=== PATIENT | male | born 1945 | race Caucasian/White ===

== ENCOUNTER 2017-09-08 15:56 | Emergency (ER) | payer MEDICARE, BC ==
[2017-09-08 16:48] LABS: BASOPHILS 0.7 % (0-2); EOSINOPHILS 2.1 % (0-7); HEMOGLOBIN 13.2 g/dL (13.5-17.5); IMMATURE GRANULOCYTES 0.1 % (0-5); LYMPHOCYTES 28.6 % (15-50); MCH 32.3 pg (26.0-34.0); MCHC 33.8 g/dL (31.0-37.0); MCV 95.4 fL (80.0-100.0); MEAN PLATELET VOLUME 10.7 fL (7.4-10.4); MONOCYTES 8.4 % (2-11); NEUTROPHILS 60.1 % (40-80); PLATELET COUNT 224 10x3/uL (130-400); RBC 4.09 10x6/uL (4.20-6.10); RDW 13.4 % (11.5-14.5); WBC 7.2 10x3/uL (4.8-10.8)
[2017-09-08 16:57] LABS: INR 1.1 (0.85-1.17); PROTIME 13.8 SECONDS (11.6-15.0)
[2017-09-08 17:03] LABS: ALBUMIN 3.5 g/dL (3.4-5.0); ANION GAP 14.8 mmol/L (8-16); BILIRUBIN - TOTAL 0.47 mg/dL (0.2-1.3); CALCIUM 8.9 mg/dL (8.5-10.1); CARBON DIOXIDE 26.3 mmol/L (21.0-32.0); CREATININE - SERUM 1.2 mg/dL (0.6-1.3); POTASSIUM - SERUM 4.1 mmol/L (3.5-5.1); PROTEIN - SERUM 7.1 g/dL (6.4-8.2)
[2017-09-08 17:30] LABS: CREATINE KINASE 110 UL (21-232); TROPONIN-I < 0.017 ng/mL (0.000-0.060)
== END 2017-09-08 18:15 | disposition home or self-care (01) ==
LOC: D.ER 15:56
PROVIDERS: Family Medicine
DX: G45.9 Transient cerebral ischemic attack, unspecified (principal); E11.9 Type 2 diabetes mellitus without complications; I10 Essential (primary) hypertension

== ENCOUNTER 2017-10-28 13:26 | Emergency (ER) | payer MEDICARE, BC ==
[~2017-10-28] VITALS: Ht 180.3 cm; Wt 72.7 kg
[2017-10-28 13:48] VITALS: Ht 180.3 cm; Wt 72.7 kg
[2017-10-28] MEDS ORDERED: PRAVACHOL20 MG PO (13:51)
[2017-10-28] MEDS ORDERED: GLUCOPHAGE500 MG PO (13:51)
[2017-10-28] MEDS ORDERED: NIACIN500 MG PO (13:51)
[2017-10-28] MEDS ORDERED: COZAAR25 MG PO (13:51)
[2017-10-28] MEDS ORDERED: MAALOX ADVANCE355 ML (13:52)
[2017-10-28 14:40] LABS: BASOPHILS 0.6 % (0-2); EOSINOPHILS 0.3 % (0-7); HEMATOCRIT 43.3 % (42.0-54.0); HEMOGLOBIN 14.4 g/dL (13.5-17.5); IMMATURE GRANULOCYTES 0.3 % (0-5); LYMPHOCYTES 19.3 % (15-50); MCHC 33.3 g/dL (31.0-37.0); MCV 96.2 fL (80.0-100.0); MEAN PLATELET VOLUME 10.3 fL (7.4-10.4); MONOCYTES 17.1 % (2-11); NEUTROPHILS 62.4 % (40-80); PLATELET COUNT 204 10x3/uL (130-400); RDW 13.4 % (11.5-14.5); WBC 7.2 10x3/uL (4.8-10.8)
[2017-10-28 15:03] LABS: ALBUMIN 3.8 g/dL (3.4-5.0); ANION GAP 15.9 mmol/L (8-16); BILIRUBIN - TOTAL 0.78 mg/dL (0.2-1.3); CALCIUM 9.3 mg/dL (8.5-10.1); CARBON DIOXIDE 25.9 mmol/L (21.0-32.0); CREATININE - SERUM 1.2 mg/dL (0.6-1.3); POTASSIUM - SERUM 4.8 mmol/L (3.5-5.1); PROTEIN - SERUM 7.2 g/dL (6.4-8.2)
[2017-10-28 16:19] LABS: APPEARANCE CLEAR (CLEAR); BILIRUBIN NEGATIVE (NEGATIVE); COLOR YELLOW (YELLOW); GLUCOSE 1000 mg/dL (NEGATIVE); KETONE SMALL mg/dL (NEGATIVE); NITRITE NEGATIVE (NEGATIVE); PROTEIN NEGATIVE (NEGATIVE); UROBILINOGEN NORMAL (NORMAL)
[2017-10-28 18:47] VITALS: BP 132/96
[2017-11-28 08:59] VITALS: Ht 180.3 cm; Wt 72.7 kg
== END 2017-10-28 18:48 | disposition home or self-care (01) ==
LOC: D.ER 13:26
PROVIDERS: Family Medicine
DX: R53.1 Weakness (principal)

== ENCOUNTER → 2017-11-08 12:51 | Outpatient (CLI) | payer MEDICARE, BC ==
[2017-10-28 13:48] VITALS: BMI 22.3
--- NOTE | ~2017-11-08 | EC ---
PATIENT:BYRON CEDILLO DATE OF SERVICE: 11/08/17 SEX: M MEDICAL RECORD: [id number] DATE OF : [birth year] [facility] AGE OF PATIENT: 72 ADMISSION DATE: 11/08/17 REFERRING PHYSICIAN: INTERPRETING PHYSICIAN: ALLI MARIE MD ECHOCARDIOGRAM REPORT ECHO CHARGES 4 ECHO COMPLETE Date: 11/08 CLINICAL DIAGNOSIS: BRADYCARDIA, CP,PALPS ECHOCARDIOGRAPHIC MEASUREMENTS (adult normal given) AC root (d.<3.7cm) 4.5 cm LV Septum d (<1.2 cm> 1.6 cm Valve Excursion 2.2 cm LV Septum (systole) 1.8 cm Left Atria (s.<4.0cm> 3.3 cm LVPW d(<1.2cm) 1.4 cm RV (d.<2.3cm) 2.4 cm LVPW (sytole) 1.8 cm LV diastole(<5.6CM) 6.4 cm MV E-F(>70mm/sec) cm LV systole 4.7 cm LVOT Diameter 1.9 cm MV exc.(>10mm) 3.1 cm Est.ejection fraction (50-75%) % DOPPLER: LVIT cm/sec A 86.0 cm/sec E 65.0 cm/sec LA cm/sec RVSP 19 mmHg LVOT 105 cm/sec AOP1/2T m/s Asc. Ao 142 cm/sec RVOT 94 cm/sec RA cm/sec PA 113 cm/sec AV Gradient Peak 8.09 mmHg AV Mean 3.89 mmHg AV Area 2.1 cm MV Gradient Peak 3.29 mmHg MV Mean 1.18 mmHg MV Area cm COMMENTS: Social Worker Masters: 2 BRUNO MA Day Spa Manager: 4 Dr. Marie TAPE# PACS Pericardial Effusion N DATE OF SERVICE: PROCEDURE: Transthoracic echocardiogram. FINDINGS: 1. Left ventricle shows ejection fraction of 55%. There is left ventricular hypertrophy. Inflow characteristics are consistent with diastolic dysfunction. There is no regional wall motion abnormalities. There is mild dilatation of the left ventricle. 2. The left atrium is 3.3 cm, normal size and function. ECHOCARDIOGRAM REPORT [id number] BYRON CEDILLO 3. The mitral valve has mild mitral regurgitation. 4. The tricuspid valve has trace tricuspid regurgitation. RVSP is normal. 5. The right ventricle is normal. 6. The right atrium is normal. 7. The pulmonic valve is not well visualized, but grossly normal. CONCLUSIONS: This patient has evidence of mild hypertensive heart disease, otherwise normal for stated age. TRANSINT:[id number] Voice Confirmation ID: [id number] DOCUMENT ID: [id number] ALLI MARIE MD at 1127 CC: [id number] DICTATION DATE: 11/12/17 0753 SUPERVISOR ELEMENTARY EDUCATION: 11/12/17 0833 [facility] CLI 11/08/17 [id number] [place] [address]
[~2017-11-08 12:51] MED LIST: COZAAR25 MG PO; GLUCOPHAGE500 MG PO; JANUMET 50-1,001 TAB PO; JARDIANCE25 MG PO; MAALOX ADVANCE355 ML; NIACIN500 MG PO; PRAVACHOL20 MG PO
[2017-11-28 08:59] VITALS: BMI 20.4
== END | disposition home or self-care (01) ==
LOC: D.ECHO 12:51
DX: R00.1 Bradycardia, unspecified (principal); I49.9 Cardiac arrhythmia, unspecified; R07.9 Chest pain, unspecified; R00.2 Palpitations

== ENCOUNTER 2017-11-28 07:25 | Outpatient (CLI) | payer MEDICARE, BC ==
[~2017-11-28] VITALS: Ht 180.3 cm; Wt 66.4 kg
--- NOTE | ~2017-11-28 | HEMODYNAMI ---
PATIENT:BYRON CEDILLO MEDICAL RECORD: [id number] : 49 LOCATION:[facility] ADMISSION DATE: 11/28/17 Generatedon:11/28/201710:46 Patient name: BYRON CEDILLO Patient #: [id number] SSN: : 1945 Date of study: 11/28/2017 Page: Of Hemodynamic Procedure Report Patient Data Patient Demographics Procedure consent was obtained First Name: BYRON Gender: Male Last Name: MAMADOU : 1945 [facility] Initial: C Age: 72 year(s) Patient #: [id number] Race: Unknown Additional ID: [id number] Contact details Address: [address] [place] [address] State: [place] City: [facility] Zip code: [address] Admission Admission Data Admission Date: 11/28/2017 Admission Time: 7:25 Procedure Procedure Types Cath Procedure Diagnostic Procedure LHC LHC w/Coronaries Procedure Description Procedure Date Procedure Date: 11/28/2017 Procedure Start Time: 10:32 Procedure End Time: 10:45 Procedure Staff Name Function Vinod Huff MD Performing Physician Brandy Reveles RT Monitor Garry Hermosillo RN Nurse Procedure Data Cath Procedure Fluoroscopy Diagnostic fluoroscopy Total fluoroscopy Time: 2.7 time: 2.7 min min Diagnostic fluoroscopy Total fluoroscopy dose: 632 dose: 632 mGy mGy Contrast Material Contrast Material Type Amount (ml) Isovue 300 48 Entry Location Entry Primary Successful Side Size Upsize Upsize Entry Closure Mcfarland ccessful Closure Location (Fr) 1 (Fr) 2 (Fr) Remarks Device Remarks Radial Right 6 Fr Mechanical artery Short Compression Estimated blood loss: 5 ml Diagnostic catheters Device Type Used For End Catheter Placement DIAGNOSTIC Iuka 110cm 5 Multi-vessel Fr catheter ([id number]) Angiography Procedure Complications No complications Procedure Medications Medication Administration Route Dosage 0.9% NaCl I.V. 100 ml/hr Oxygen etCO2 Nasal cannula 2 l/min Heparin Flush Bag added to field 2 bags (1000units/500ml NS) Radial Cocktail added to field 1 syringe (Verapomil 2mg/Nitro 400mcg/Heparin 1500units) Fentanyl I.V. 50 mcg Versed I.V. 1 mg Versed I.V. 1 mg Radial Cocktail I.A. 1 syringe (Verapomil 2mg/Nitro 400mcg/Heparin 1500units) Hemodynamics Rest Heart Rate: 76 (bpm) Pressure Samples Time Site Value (mmHg) Purpose Heart Use Rate(bpm) 10:36 LV 82/-8,-7 EDP 113 10:36 LV 91/-1,3 EDP 90 Gradients Valve Time Site Site Mean SEP/DFP Peak To Heart Use 1 2 (mmHg) (sec/min) Peak Rate (mmHg) (bpm) Aortic 10:37 LV AO 104 Snapshots Pre Cath Intra NCS Post Cath Vital Signs Time Heart Resp SPO2 etCO2 NIBP (mmHg) Rhythm Pain Sedation Rate (ipm) (%) (mmHg) Status Level (bpm) 10:20:04 98 17 99 0 171/105(151) A-Flutter 0 (11) 10(A) , No pain 10:25:19 92 16 100 33.1 156/86(136) A-Flutter 0 (11) 10(A) , No pain 10:30:02 91 20 97 31.5 157/79(129) A-Flutter 0 (11) 10(A) , No pain 10:34:45 98 21 97 25.5 161/77(121) A-Flutter 0 (11) 10(A) , No pain 10:39:27 99 15 96 35.3 120/75(103) A-Flutter 0 (11) 9(A) , No pain 10:44:02 74 13 96 32.3 132/74(107) A-Flutter 0 (11) 9(A) , No pain Medications Time Medication Route Dose Verified Delivered Reason Notes Effectiveness by by 10:23:43 0.9% NaCl I.V. 100 Garry Garry Per ml/hr Jaimee Hermosillo physician BRENTON RN 10:24:02 Oxygen etCO2 2 l/min Vinod Garry Nasal Refugio Hermosillo cannula MD FARRIS 10:24:17 Heparin Flush added 2 bags Vinod Garry used for Bag to Refugio Hermosillo procedure (1000units/500ml field MD FARRIS NS) 10:24:27 Radial Cocktail added 1 Vinod Garry used for (Verapomil to syringe Refugio Hermosillo procedure 2mg/Nitro field MD FARRIS 400mcg/Heparin 1500units) 10:27:23 Fentanyl I.V. 50 mcg Vinod Garry for sedation Refugio Hermosillo MD, RN 10:27:30 Versed I.V. 1 mg Vinod Garry for sedation Refugio Hermosillo MD, RN 10:32:43 Versed I.V. 1 mg Vinod Garry for sedation Refugio Hermosillo MD, RN 10:34:35 Radial Cocktail I.A. 1 Vinod Vinod for (Verapomil syringe Refugio harrison 2mg/Nitro 400mcg/Heparin 1500units) Procedure Log Time Note 10:00:42 Garry Hermosillo RN sent for patient. Start room use. 10:11:47 Diagnostic Cath Status : Elective 10:13:49 Time tracking: Regular hours (M-F 7:00 - 5:00) 10:13:56 Plan of Care:Hemodynamics will remain stable., Cardiac rhythm will remain stable., Comfort level will be maintained., Respiratory function will remain adequate., Patient/ family verbilizes understanding of procedure., Procedure tolerated without complication., Recovers from procedure without complications.. 10:14:12 Patient received from Pre/Post Procedure Room to CCL 1 Alert and oriented. Tansferred to table in Supine position. 10:14:18 Warm blankets applied, and bisi hugger turned on for patient comfort. 10:14:19 Correct patient and procedure confirmed by team. 10:14:20 Signed procedure consent form obtained from patient. 10:14:21 ECG and BP/O2 sat monitors applied to patient. 10:19:13 Vital chart was started 10:23:43 0.9% NaCl 100 ml/hr I.V. was administered by Garry Hermosillo RN; Per physician; 10:24:02 Oxygen 2 l/min etCO2 Nasal cannula was administered by Garry Hermosillo RN; ; 10:24:17 Heparin Flush Bag (1000units/500ml NS) 2 bags added to field was administered by Garry Hermosillo RN; used for procedure; 10:24:27 Radial Cocktail (Verapomil 2mg/Nitro 400mcg/Heparin 1500units) 1 syringe added to field was administered by Garry Hermosillo RN; used for procedure; 10:24:52 Baseline sample Acquired. 10:24:59 Rhythm: atrial flutter 10:25:01 Full Disclosure recording started 10:25:07 H&P Date Dictated: 11/28/2017 Within 30 days and on chart., H&P Addendum completed by physician on day of procedure. (MUST COMPLETE FOR ALL OUTPATIENTS). 10:25:08 Pre-procedure instructions explained to patient. 10:25:09 Pre-op teaching completed and patient verbalized understanding. 10:25:10 Family in patients room. 10:25:17 Patient NPO since Midnight. 10:25:19 Is the patient allergic to Iodine/contrast media? No. 10:25:20 Was the patient premedicated? No 10:25:21 Is patient on blood thinner?Yes 10:25:24 ACC The patient was administered the following blood thiners within the last 24 hours: ACCPlavix 10:25:26 Patient diabetic? Yes. 10:25:27 If diabetic: On Metformin? Yes 10:25:30 If on Metformin: Last Dose? 11/26/2017 10:25:38 Previous problem with sedation/anesthesia? No ? 10:25:40 Snore? Yes 10:25:41 Sleep apnea? No 10:25:43 Deviated septum? No 10:25:51 Opens mouth fully? Yes 10:25:52 Sticks out tongue? Yes 10:25:56 Airway obstruction? No ? 10:26:03 Dentures? No ? 10:26:07 Pre procedure: right dorsailis pedis pulse 2+ Normal; easily identifiable; not easily obliterated 10:26:18 Pre procedure: left dorsailis pedis pulse 1+ Palpable, but thready & weak; easily obliterated 10:26:21 Patient pain scale 0/10 ?. 10:26:36 IV patent on arrival in left forearm with 0.9% NaCl at O. 10:26:38 Lab results completed and on chart. 10:26:44 Right Radial & Right Groin area was prepped with chlora-prep and draped in sterile fashion 10:26:45 Alarms reviewed by R. N. 10:26:45 Sharps counted by scrub and verified by R.N. 10:26:47 Physician arrived 10:26:47 --------ALL STOP TIME OUT------ 10:26:48 Final Timeout: patient, procedure, and site verified with staff and physician. All members of the team are in agreement. 10:26:50 Right Radial & Right Groin site verified by team. 10:26:53 Physical assessment completed. ASA score P 2 - A patient with mild systemic disease as per Vinod Huff MD. 10:26:56 Sedation plan: IV Moderate Sedation Medication:Versed, Fentanyl 10:27:02 Use device set Radial Dx or PCI 10:27:03 ACIST Syringe (37316) opened to sterile field. 10:27:03 Medline Cath Pack ([id number]) opened to sterile field. 10:27:04 Bag Decanter (2002S) opened to sterile field. 10:27:04 DIAGNOSTIC WIRE .035 260cm J wire (928893) opened to sterile field. 10:27:05 ACIST Hand Control (97396) opened to sterile field. 10:27:05 ACIST Manifold (10308) opened to sterile field. 10:27:06 Tegaderm 4 x 4 (1626W) opened to sterile field. 10:27:06 MBrace Wrist Support ([id number]) opened to sterile field. 10:27:07 SHEATH 6Fr Prelude Radial ([id number]) opened to sterile field. 10:27:23 Fentanyl 50 mcg I.V. was administered by Garry Hermosillo RN; for sedation; 10:27:30 Versed 1 mg I.V. was administered by Garry Hermosillo RN; for sedation; 10:32:39 Procedure started. 10:32:43 Versed 1 mg I.V. was administered by Garry Hermosillo RN; for sedation; 10:32:49 Local anesthetic to right radial artery with Lidocaine 2% by Vinod Huff MD.INITIAL ACCESS ONLY 10:33:47 Zero performed for pressure channel P1 10:34:33 A 6 Fr Short sheath was inserted into the Right Radial artery 10:34:35 Radial Cocktail (Verapomil 2mg/Nitro 400mcg/Heparin 1500units) 1 syringe I.A. was administered by Vinod Huff MD; for vasodilation; 10:34:43 A DIAGNOSTIC Iuka 110cm 5 Fr catheter (464403) was advanced over the wire and used for Multi-vessel Angiography. 10:37:02 LV hemodynamics recorded. 10:37:04 LV gram done using CLAROS 10:37:07 Injector settings: Ml/sec: 12, Volume: 8, 10:38:05 LCA angiography performed. 10:38:08 Injector settings: Ml/sec: 3, Volume: 6+, 10:40:58 RCA angiography performed. 10:41:01 Injector settings: Ml/sec: 3, Volume: 6, 10:41:09 Catheter removed. 10:41:36 Sheath removed intact; hemostasis achieved with Mechanical Compression to the Right Radial artery. 10:41:38 Procedure ended.(Physican Out) 10:41:55 Fluoroscopy time 02.70 minutes. 10:42:12 Fluoroscopy dose: 632 mGy 10:42:12 Flurop Dose total: 632 10:42:18 Contrast amount:Isovue 300 48ml. 10:42:20 Sharps counted by scrub and verified by R.N. 10:42:24 TR band inflated with 10cc of air. 10:42:25 Insertion/operative site no bleeding no hematoma. 10:42:42 Post right radial artery:stable 10:44:17 Post Procedure Pulses reassessed and unchanged 10:44:20 Post procedure rhythm: unchanged. 10:44:22 Estimated blood loss: 5 ml 10:44:24 Post procedure instruction explained to patient.Patient verbalizes understanding. 10:44:24 Patient needs reinforcement of post procedure teaching. 10:45:05 Procedure and supply charges have been captured, reviewed, submitted and are correct. 10:45:10 Procedure Complication : No complications 10:45:13 Vital chart was stopped 10:45:14 See physician's report for complete and final results. 10:45:18 Report given to Pre/Post Procedure Room. 10:45:20 Patient transfered to Pre/Post Procedure Room with Stretcher. 10:45:23 Procedure ended. 10:45:23 Full Disclosure recording stopped 10:45:28 End room use (Document Last) 10:46:04 TR BAND Standard ([id number]) opened to sterile field. Device Usage Item Name Manufacture Quantity Catalog Number Hospital Part Current M inimal Lot# / Charge Number Stock Stock Serial# Code ACIST Syringe Acist 1 07208 860364 621114 398515 2 0 (25382) Medical [employer] Medline Cath Cardinal 1 [id number] 646882 41725 [id number] 5 Pack Health ([id number]) Bag Decanter Microtek 1 2001S 265155 88219 906916 5 (2001S) Medical Inc. DIAGNOSTIC WIRE St Cong 1 600208 262211 778697 873013 3 0 .035 260cm J wire (872880) ACIST Hand Acist 1 85491 004802 197324 722448 5 Control (85534) Medical Systems Inc ACIST Manifold Acist 1 41730 146621 183385 393820 5 (43931) Medical Systems Inc Tegaderm 4 x 4 3M 1 1626W 002806 472176 457655 5 (1626W) MBrace Wrist Advanced 1 140-0250-00 738037 02001 356585 5 Support Vascular ([id number]) Dynamics SHEATH 6Fr Merit 1 [id number] 786026 541387 099055 5 Prelude Radial Medical ([id number]) DIAGNOSTIC Terumo 1 40-5419 511765 989223 531521 5 Iuka 110cm 5 Fr catheter (852105) TR BAND Terumo 1 [id number]-UKY 359194 768882 230912 4 0 Standard ([id number]) Signature Audit Rainier Stage Time Signature Unsigned Intra-Procedure 11/28/2017 Brandy Reveles 10:46:35 AM RT(R) Signatures Monitor : Brandy Reveles RT Signature : Date : Time : [facility] [address] [place] [address]
--- NOTE | ~2017-11-28 | OP ---
PATIENT NAME: BYRON CEDILLO MEDICAL RECORD: [id number] :49 LOCATION:D.CAT ADMISSION DATE: SURGEON: ALLI MARIE MD DATE OF OPERATION: 11/28/2017 The patient presented for left heart catheterization. PROCEDURE IN DETAIL: The patient was brought to cardiac catheterization lab in stable condition. The right wrist sterilely prepped and draped. The patient had a 6-Greek sheath placed in the right radial artery in a retrograde fashion using modified Seldinger technique. We were then able to take a diagnostic catheter and selectively engage the left coronary artery, the right coronary artery and the left ventricular cavity. FINDINGS: 1. Left main has a distal 80% stenosis. 2. The LAD has a 95% heavily calcified ostial stenosis and a mid 95% stenosis that is heavily calcified. He has a mid diagonal that is heavily calcified with an ostial 99% stenosis. 3. The circumflex has an ostial 95% and the terminal obtuse marginal branch has a proximal 90% stenosis, it is moderately calcified. 4. The RCA is 100% occluded. The conus branch supplies collaterals into the distal PDA. The RCA itself has pmbgw-jt-wqzat collaterals filling the posterior lateral branch and with competitive flow in the PDA itself. 5. Hemodynamics: Ejection fraction 45%. Mild global hypokinesis. No significant mitral regurgitation. No gradient across the aortic valve. IMPRESSION: Multivessel coronary artery disease in the person with mild ischemic cardiomyopathy, recommending coronary artery bypass grafting. TRANSINT:[id number] Voice Confirmation ID: [id number] DOCUMENT ID: [id number] ALLI MARIE MD at 0841 CC: [id number] DICTATION DATE: 11/28/17 1048 CLIENT SERVICES COORDINATOR: 11/28/17 1152 [facility] CLI 11/28/17 [address] [place] [address]
[~2017-11-28 07:25] MED LIST changes: -JANUMET 50-1,001 TAB PO; -JARDIANCE25 MG PO
[2017-11-28] MEDS ORDERED: JANUMET 50-1,001 TAB PO (08:44)
[2017-11-28] MEDS ORDERED: JARDIANCE25 MG PO (08:45)
[2017-11-28 08:59] VITALS: BP 148/70; Ht 180.3 cm; Wt 66.4 kg
[2017-11-28 09:00] LABS: BASOPHILS 0.6 % (0-2); EOSINOPHILS 2.2 % (0-7); HEMATOCRIT 43.2 % (42.0-54.0); HEMOGLOBIN 14.7 g/dL (13.5-17.5); IMMATURE GRANULOCYTES 0.1 % (0-5); LYMPHOCYTES 47.9 % (15-50); MCH 32.2 pg (26.0-34.0); MCV 94.5 fL (80.0-100.0); MEAN PLATELET VOLUME 10.3 fL (7.4-10.4); MONOCYTES 11.5 % (2-11); NEUTROPHILS 37.7 % (40-80); PLATELET COUNT 234 10x3/uL (130-400); RBC 4.57 10x6/uL (4.20-6.10); RDW 13.9 % (11.5-14.5); WBC 6.9 10x3/uL (4.8-10.8)
[2017-11-28 09:09] LABS: ANION GAP 15.2 mmol/L (8-16); CALCIUM 9.4 mg/dL (8.5-10.1); CARBON DIOXIDE 29.5 mmol/L (21.0-32.0); CREATININE - SERUM 1.1 mg/dL (0.6-1.3); POTASSIUM - SERUM 3.7 mmol/L (3.5-5.1)
== END 2017-11-28 13:00 | disposition home or self-care (01) ==
LOC: D.CATH 07:25
PROVIDERS: Internal Medicine Cardiovascular Disease
DX: I25.110 Atherosclerotic heart disease of native coronary artery with unstable angina pectoris (principal)

== ENCOUNTER → 2018-01-13 18:10 | Outpatient (CLI) | payer MEDICARE, BC ==
[2017-11-28 08:59] VITALS: BMI 20.4
[~2018-01-13 18:10] MED LIST changes: +JANUMET 50-1,001 TAB PO; +JARDIANCE25 MG PO
[2018-01-13 18:46] LABS: CHOL - HDL RATIO 1.4 ratio (2.3-4.9); LDL-HDL RATIO 0.3 ratio (1.5-3.5)
== END | disposition home or self-care (01) ==
LOC: D.LABREF 18:10
PROVIDERS: Internal Medicine Cardiovascular Disease
DX: E78.5 Hyperlipidemia, unspecified (principal)

== ENCOUNTER 2018-03-14 10:00 | Inpatient (IN) | payer MEDICARE, BC ==
[~2018-03-14] VITALS: Ht 180.3 cm; Wt 68.4 kg
--- NOTE | ~2018-03-14 | HP ---
PATIENT: BYRON CEDILLO MEDICAL RECORD: [id number] ACCOUNT: [id number] LOCATION:[facility] : 49 ADMISSION DATE: 03/18/18 PCP: STEPHANY FREY MD HISTORY AND PHYSICAL EXAMINATION BYRON Sanchez (73yo, M) ID# [id number]. Date/Time02/26/2018 02:[id number] Dept.NPP_[facility] ClinicProviderDANIMANSI FREY MDInsuranceMed Primary[place] Insurance # : [id number] Referring Provider Name : CHANA ROSA Employer Name : RETIRED Med Secondary[place] Insurance # : [id number] Referring Provider Name : CHANA ROSA Employer Name : RETIRED Prescription: MDIM - Member is eligible. Chief Complaint Coronary artery disease Patient's Care Team Referring Provider (): CHANA ROSA: [address] [place] [address], , Business Administrator: ALLI MARIE MD: [address] [place] [address], , Patient's Pharmacies [facility] (ERX): [address] [facility] [address], , Vitals BP:160/78 sitting R arm 02/26/2018 03:40 pm 164/80 sitting L arm 02/26/2018 03:41 pmHR:56/reg 02/26/2018 03:41 pmHt:5 ft 11 in 02/26/2018 03:38 pmWt:142 lbs 02/26/2018 03:38 pmBMI:19.8 02/26/2018 03:38 pmAllergies Reviewed Allergies SABIHA INHIBITORS: CoughNORCO: NauseaNORVASC: DizzinessMedications Reviewed Medications atorvastatin 80 mg phdiok78/24/18 filledMEDIMPACTcefdinir 300 mg jbincen69/27/18 filledMEDIMPACTdonepezil 5 mg tjirtc06/23/18 filledMEDIMPACTezetimibe 10 mg tqdyuj85/03/18 filledMEDIMPACTJardiance 10 mg /05/18 filledMEDIMPACTlatanoprost 0.005 % eye drops02/19/18 filledMEDIMPACTlosartan 25 mg ikudmq58/31/18 filledMEDIMPACTmetFORMIN ER 500 mg tablet,extended release 24 hr01/08/18 filledMEDIMPACTpravastatin 20 mg finemu29/01/18 filledMEDIMPACTProblems Reviewed Problems Diabetes mellitus Hyperlipidemia Hypertensive disorder Angina pectoris Coronary arteriosclerosis Bradycardia Cardiac arrhythmia Family History Reviewed Family History Social History Reviewed Social History Cardiology HISTORY AND PHYSICAL [id number] BYRON CEDILLO [facility] Status: Never smoker High Cholesterol: Y High blood pressure: Y Diabetes: Y Surgical History Reviewed Surgical History Past Medical History Reviewed Past Medical History Angina: Y Chest Pain: Y Coronary Artery Disease: Y Heart Rhythm Disorder: Y High Blood Pressure: Y Hyperlipidemia: Y Hypertension: Y Irregular heart beat: Y Documents for Discussion N/A Screening None recorded. HPI Dyspnea Reported by patient. Quality: dyspnea Fatigue Reported by patient. Quality: continuous Severity: normal sleep patterns; normal activity; same Duration: constant; symptoms lasting over 2 weeks Timing: gradual Context: symptoms do not improve on weekends/vacations Modifying Factors: no new stressors in life Associated Symptoms: no depression; no anxiety previously seen in catheter lab, concern for dementia Progressive weakness and occasional instability of gait Denies angina or dyspnea ROS Additionally reports: as reviewed in the chart with the patient and family Physical Exam Patient is a 73-year-old male. Constitutional: General Appearance well nourished and developed and healthy-appearing. Level of Distress NAD. Ambulation ambulating normally. Cardiovascular: Apical Impulse not displaced or no thrill. Heart Auscultation no murmurs, rubs, or gallops and RRR. Arterial Pulses 2+ bilateral brachial. Edema no edema or varicosities. Lungs: Repiratory Effort no dyspnea. Percussion no hyperresonance or dullness or flatness. Auscultation no wheezing, rhonchi, or rales / crackles and breathing sounds normal and good air movement. Abdomen: Inspection and Palpation soft, non-distended, and no tenderness. Liver no HISTORY AND PHYSICAL [id number] MAMADOU,BYRON C hepatomegaly. Spleen no splenomegaly. Ears, Nose, Throat: Hearing grossly normal hearing. Oropharynx: moist mucous membranes. Musculoskeletal System: Gait And Stance normal gait and stance. Joints, Bones, and Muscles normal strength and movement of all extremities. Neurologic: Cranial Nerves grossly intact. Sensation grossly intact. Lymph Nodes: Lymph Nodes no cervical LAD or supraclavicular LAD. Eyes: Lids and Conjunctivae non-injected. EOM EOMI. Sclerae non-icteric. Neck: Neck no masses, enlarged lymph nodes, or carotid bruits and supple and trachea midline. Thyroid non-tender and no enlargement. Skin: Inspection and Palpation no rash, lesions, ulcers, or jaundice. Assessment / Plan 1. Coronary arteriosclerosis I25.10: Atherosclerotic heart disease of squaxin coronary artery without angina pectoris Discussion Notes significant 3 vessel coronary art snehal disease with moderately diminished left ventricular function, not amenable to percutaneous intervention. High risk of from cardiac event without revascularization. Discussed all options with patient and family including risks, alternatives, bene fits, and recovery, including worsening dementia. They give consent. STEPHANY FREY MD at 1312 CC: [id number] DICTATION DATE: 02/26/18 1430 BILL PEDDLER: CHANG 03/07/18 1410 PRE IN [facility] [address] [id number]
--- NOTE | ~2018-03-14 | OP ---
PATIENT NAME: BYRON CEDILLO MEDICAL RECORD: [id number] :49 LOCATION:[facility] ADMISSION DATE:03/24/18 SURGEON: RICK FREY MD DATE OF OPERATION: 03/24/2018 SURGEON: Rick Frey MD MOBILE HOME TECHNICIAN: IRIS Talbert MD and JASPAL Harris OPERATION PERFORMED: Coronary artery bypass graft times 3 (left internal mammary artery to LAD, reverse saphenous vein graft from aorta to first diagonal, aorta to obtuse marginal). PREOPERATIVE DIAGNOSES: Coronary artery disease with unstable angina. POSTOPERATIVE DIAGNOSES: Coronary artery disease with unstable angina. ANESTHESIA: General endotracheal anesthesia. ESTIMATED BLOOD LOSS: Total cardiopulmonary bypass with Cell Saver retransfusion and 1 unit platelets. SPECIMENS: None. CONDITION: Stable. DISPOSITION: CV ICU. OPERATIVE FINDINGS: 1. Transesophageal echocardiography confirmed 40% ejection fraction with mild tricuspid and mitral regurgitation, less than 1+. Unchanged after cardiopulmonary bypass. Left ventricular hypertrophy. 2. Greater saphenous vein below the knee on the right was very small and not usable and just above the knee also was small, but a short segment was available for the diagonal. Attempt at endoscopic harvest was unsuccessful, so bridging incisions of the right thigh were made to remove one segment used for the obtuse marginal. The left thigh vein was exposed, but was not removed with a singular incision in the distal left thigh. 3. Left internal mammary artery was a good conduit. The LAD was a moderately diseased 1.5 mm vessel with only a 1.5 mm probe able to pass distally to the apex and some distance proximally. There was excellent Doppler signal after anastomosis and after reversal of heparin. 4. The diagonal vessel was a 1.5 mm severely diseased vessel. 5. The obtuse marginal was a 2.0-mm severely diseased vessel. 6. The posterior descending artery was calcified throughout and not bypassable. The posterolateral branch of the right coronary artery was a 1 mm thin-walled vessel and was not bypassed. 7. Separation from cardiopulmonary bypass without inotropes. 8. A 4.2 cm ascending aorta. OPERATIVE INDICATION: Coronary artery disease. OPERATIVE SUMMARY IN DETAIL: The patient was brought to the operating suite. General anesthesia was obtained. The patient was prepped and draped. Greater saphenous vein was harvested from the patient's right lower extremity utilizing OPERATIVE REPORT [id number] BYRON CEDILLO open technique. Side branches were divided with clips. The vessel was ligated proximally and distally, removed. Side branches were tied or oversewn. The leg was later closed in 2 layers including a drain and closure of the left leg incision. Median sternotomy incision was made. Subcutaneous tissue was divided with electrocautery. The sternum was divided with a saw. The left hemisternum was elevated. The left pleural cavity was entered. Left internal mammary artery and vein was taken down as a pedicle graft. Sternal retractor was placed. Pericardium was opened. Heparin was given. Aorta was cannulated. The dual stage venous cannula was inserted. The internal mammary was clipped distally and made ready for anastomosis. Activated clotting time was appropriately elevated. The patient was placed on cardiopulmonary bypass. Sites from distal anastomosis were selected. Antegrade cardioplegia needle was inserted. The patient was mildly cooled and crossclamp was placed. Cardioplegia was given antegrade including down the completed vein grafts and this was repeated at 15-minute intervals. Distal anastomoses were performed in standard technique. Proximal anastomosis with single cross-clamp technique. The aortic root de-aired, proximal anastomoses tied down. The proximal anastomosis to the diagonal, which was a small caliber vein, was done with a 3.5 mm punch and 7-0 Prolene. Distal anastomosis inspected for bleeding. Proximal anastomosis in single 7-0 in the proximal diagonal vein graft. Spontaneous rhythm resumed. Atrial and ventricular pacing wires were placed. The patient was weaned from cardiopulmonary bypass. After full rewarming it was stable. The patient was decannulated. Protamine was given. The cannula sites were oversewn. Thorough irrigation was undertaken. Graft laid appropriately. The left chest was evacuated and irrigated. The internal mammary harvest site was without bleeding. A drain was placed in the mediastinum in the left pleural cavity. Pericardial fat was loosely reapproximated. Chest wall was closed with wires. Fascia was closed. Subcutaneous tissue was closed. Skin was closed. Dermabond was placed. The needle and sponge counts were reported as correct. The patient was taken to ICU in stable condition. TRANSINT:[id number] Voice Confirmation ID: [id number] DOCUMENT ID: [id number] RICK FREY MD at 0914 CC: ALLI MARIE MD [id number] DICTATION DATE: 03/24/18 1548 CONSULTANT: 03/25/18 0033 ADM IN [facility] [address] [facility], [facility]
--- NOTE | ~2018-03-14 | CN ---
PATIENT NAME:BYRON CEDILLO MEDICAL RECORD: [id number] : 49 LOCATION:[facility].CV06 ADMIT DATE: 03/24/18 ACCOUNT: [id number] CONSULTING PHYSICIAN: HELEN ARNOLD MD REFERRING PHYSICIAN: STEPHANY FREY MD DATE OF CONSULTATION: 03/30/2018 DIAGNOSES: 1. Atrial fibrillation. 2. Status post coronary bypass graft surgery. 3. Mitral regurgitation. 4. Cardiomyopathy. 5. Hyperlipidemia. 6. Hypertension. HISTORY: This is a gentleman who is status post coronary bypass graft surgery, went into atrial fibrillation with rapid ventricular response, was on Cardizem p.o. and IV as well as Lopressor p.o. Transesophageal echo at the time of surgery revealed an ejection fraction in 40% range; however, normal chamber sizes. No pulmonary hypertension and only mild mitral regurgitation. PHYSICAL EXAMINATION: GENERAL APPEARANCE: Well-nourished, well-developed, appears stated age. Level of distress, comfortable. PSYCHIATRIC: Mental status, alert, normal affect. Orientation, oriented to time, place and person. EYES: Lids and conjunctiva, noninjected. No discharge, no pallor. ENT: Lips, teeth, gums, normal dentition. Oropharynx, no cyanosis, no pallor. NECK: Carotid arteries, bilateral normal upstroke, no bruits, no thrills. JUGULAR VEINS: No jugular venous pressure or distention. CERVICAL LYMPH NODES: Nontender, nonenlarged. THYROID: Not enlarged. Nontender. No nodules. LUNGS: Respiratory effort, unlabored. CHEST: Normal curvature. No thoracic deformity. No chest wall tenderness. Percussion, resonant. Auscultation, clear. No wheezes, no rales, no rhonchi. CARDIOVASCULAR: Precordial exam, nondisplaced. No heaves or pericardial thrills. Rate and rhythm, regular. Heart sounds, normal S1, normal S2. No S3, no gallop, no rub. Systolic murmur, not heard. Diastolic murmur, not heard. EXTREMITIES: No cyanosis, no edema. Peripheral pulses, full and equal in all extremities, except as noted. No bruits appreciated. ABDOMEN: Soft, nondistended. Normal aorta. No bruit. Nontender. No masses. Liver, nontender, no hepatomegaly. Spleen, nontender, no splenomegaly. MUSCULOSKELETAL: No joint tenderness. No joint swelling. No erythema. NEUROLOGICAL: Normal gait, normal strength, normal tone. SKIN: Warm and dry. OVERALL IMPRESSION: Atrial fibrillation. At this time, most likely he will need an antiarrhythmic for now and at least 3 months after the bypass surgery. We will discontinue the p.o. Cardizem and p.o. Lopressor. Start sotalol 80 mg b.i.d. and adjusting the Cardizem drip depending upon the heart rate. TRANSINT:[id number] Voice Confirmation ID: [id number] DOCUMENT ID: [id number] CONSULT REPORT [id number] BYRON CEDILLO JEFFREY MD at 1108 CC: [id number] DICTATION DATE: 03/30/18 1126 BOX FOLDING MACHINE OPERATOR: 03/30/18 1345 ADM IN [facility] [address] [place] [id number]
--- NOTE | ~2018-03-14 | MORECARE ---
CASE MANAGEMENT DISCHARGE SUMMARY PATIENT: BYRON CEDILLO UNIT: [id number] ADM DATE: 03/24/18 AGE: 73 : 47 SEX: M [facility] AUTHOR: CARY LOCKHART PHYSICIAN: REFERRING PHYSICIAN: STEPHANY FREY MD DATE OF SERVICE: 03/26/18 Discharge Plan Patient Name: BYRON CEDILLO Facility: [facility]:[place] : 1945 Planned Disposition: Home Anticipated Discharge Date: Discharge Date: Expected LOS: Initial Reviewer: [email or web address] Initial Review Date: 03/26/2018 Generated: 03/26/18 2:43 pm Comments DCP- Discharge Planning Updated by [email or web address]: Ness Herrera on 03/26/18 12:[address] Late Entry 03/26/18 @ 0945 Patient Name: BYRON CEDILLO Admission Status: Elective Accout number: [id number] Admission Date: 03-24-2018 : 1945 Admission Diagnosis: Attending: STEPHANY FREY Current LOS: 2 Anticipated DC Date: Planned Disposition: Home Primary Insurance: MEDICARE A & B Discharge Planning Comments: [employer] Teacher: Ness Herrera DCPIA - Discharge Planning Initial Assessment Updated by [email or web address]: Ness Herrera on 03/26/18 1:41 pm * Is the patient Alert and Oriented? Yes * How many steps to enter\exit or inside your home? * [place] [facility] [place] Environment Home with Family * ADLs Independent * Equipment Cane * Other Equipment Walker * List name and contact numbers for known caregivers / representatives who currently or will assist patient after discharge: Anne Cedillo [phone] * Verbal permission to speak to the caregivers and representatives has been obtained from the patient. N/A * Community resources currently utilized None * Additional services required to return to the preadmission environment? No * Can the patient safely return to the preadmission environment? Yes * Has this patient been hospitalized within the prior 30 days at any hospital? No Patient Name: BYRON CEDILLO Page [id number] at 1343 All edits/amendments must be made on the electronic document DICTATION DATE: 03/26/181341 VP CARDIOVASCULAR SERVICE LINE: CHANG 03/26/18 134 RPT#: [id number] DC DATE: STATUS: ADM IN [facility] [address] [place] [address] END OF REPORT
--- NOTE | ~2018-03-14 | TEE ---
PATIENT:BYRON CEDILLO MEDICAL RECORD: [id number] LOCATION:[place] [address] AGE OF PATIENT: 73 ADMISSION DATE: 03/24/18 SEX: M REFERRING PHYSICIAN: INTERPRETING PHYSICIAN: HELEN OSEGUERA MD TRANSESOPHAGEAL ECHOCARDIOGRAM Date: 03/24/18 KAMI CHARGE Y INDICATIONS: CABG PREMEDICATIONS: PATIENT'S RESPONSE PROCEDURE DOPPLER MEASUREMENTS: LVIT LA PA RA LVOT RVOT Asc. Ao AV Gradient Peak AV Mean AV Area MV Gradient Peak MV Mean MV Area INTERPRETATION: LVd: 4.5 cm LVs: 3.0 cm Doppler: 2-D: COLOR FLOW DOPPLER NORMAL SALINE STUDY: MISCELLANOUS: DIAGNOSIS: PLAN: Manager Unit:1 Dr. Oseguera Manager Finance: COMMENTS: DATE OF SERVICE: 03/24/2018 PROCEDURE: Transesophageal echo evaluation of valvular structures during bypass surgery. FINDINGS: 1. Left ventricular chamber size is within normal limits. Left ventricular systolic function is mildly reduced, overall ejection fraction estimated at 40%. 2. Left atrium, right atrium, and right ventricle chamber sizes are upper TRANSESOPHAGEAL ECHOCARDIOGRAM REPORT [id number] BYRON CEDILLO limits of normal. 3. Valvular structures have normal structure and motion. 4. Doppler interrogation reveals mild mitral regurgitation, trace tricuspid regurgitation, no other valvular insufficiency or stenosis. Pulmonary systolic pressure is normal estimated at 30 mmHg. 5. No evidence of pericardial effusion or left ventricular thrombus. TRANSINT:[id number] Voice Confirmation ID: [id number] DOCUMENT ID: [id number] at 1025 CC: [id number] DICTATION DATE: 03/24/18 1133 HEALTHCARE INTERPRETER: 03/25/18 0427 ADM IN [place] [id number] [place] [address]
--- NOTE | ~2018-03-14 | CN ---
PATIENT NAME:BYRON CEDILLO MEDICAL RECORD: [id number] : 49 LOCATION:[facility].CV06 ADMIT DATE: 03/24/18 ACCOUNT: [id number] CONSULTING PHYSICIAN: NATALIE RODRIGUEZ MD REFERRING PHYSICIAN: STEPHANY FREY MD DATE OF CONSULTATION: 03/24/2018 DATE OF CONSULTATION: 03/24/2018 REASON FOR CONSULTATION: Medical management. HISTORY OF PRESENT ILLNESS: The patient is a 73-year-old male who is followed by Dr. Jones. He was recently admitted for coronary artery bypass grafting times 3. We have been asked to see the patient for medical management. His history is significant that he has had hyperlipidemia, he has had diabetes mellitus as well as hyperlipidemia. The patient has also had some mental status decline. The patient was found earlier this year to have chest pain. He underwent coronary angiogram, which revealed 3-vessel, which was not amendable to percutaneous stenting. FAMILY HISTORY: Noncontributory. MEDICATIONS: Include atorvastatin 80 mg once a day, Aricept 5 mg once a day, Jardiance 10 mg once a day, metformin 500 mg 2 tablets p.o. every day, Niacin ER 500 mg daily. ALLERGIES: No known drug allergies. FAMILY HISTORY: Noncontributory. REVIEW OF SYSTEMS: CONSTITUTIONAL: He denies any headaches, seizure or syncope. Denies change in visual or auditory acuity. PULMONARY: He denies any shortness of breath, cough or congestion, history of TB, asthma, or bronchitis. CARDIOVASCULAR: As stated above. GASTROINTESTINAL: No chronic nausea, vomiting, melena or hematochezia. GENITOURINARY: No urgency, frequency, or dysuria. PHYSICAL EXAMINATION: GENERAL: The patient was just taken off the ventilator. He is alert. He is oriented times 3. He is in moderate amount of pain at the present time, his pulse was 54. VITAL SIGNS: His temperature is 98.4, his respiration 14, blood pressure 119/49. HEENT: Head is normocephalic. No lesions. Ears: TMs clear. Eyes: Pupils equal, round, reactive to light. His extraocular movements are intact. His nasal cavity, oral cavity, oropharynx is clear. NECK: Supple. There is no adenopathy. HEART: Has a regular rate and rhythm without any murmurs, gallops or rubs. LUNGS: Clear. EXTREMITIES: He does have bilateral chest tubes. He also has drain tubes on the right lower extremity secondary to the greater saphenous vein harvest. LABORATORY DATA: Preoperatively, the patient's CBC was unremarkable as well as CONSULT REPORT [id number] BYRON CEDILLO his renal functions. ASSESSMENT: Status post coronary artery bypass grafting times 3, diabetes mellitus, hypertension, hyperlipidemia. PLAN: We will follow along with you. Thanks for the consultation. TRANSINT:[id number] Voice Confirmation ID: [id number] DOCUMENT ID: [id number] NATALIE RODRIGUEZ MD at 0750 CC: [id number] DICTATION DATE: 03/24/18 183 SUPERVISOR BOTTLE MACHINES: 03/25/18 0155 ADM IN [facility] [address] [place] [address]
--- NOTE | ~2018-03-14 | MORECARE ---
CASE MANAGEMENT DISCHARGE SUMMARY PATIENT: BYRON CEDILLO UNIT: [id number] ADM DATE: 03/24/18 AGE: 73 : 47 SEX: M [facility] AUTHOR: CHANTELLE,DOC PHYSICIAN: REFERRING PHYSICIAN: STEPHANY FREY MD DATE OF SERVICE: 04/02/18 Discharge Plan Patient Name: BYRON CEDILLO Facility: [facility]:[place] : 1945 Planned Disposition: Home Anticipated Discharge Date: Discharge Date: 04/01/2018 Expected LOS: Initial Reviewer: [email or web address] Initial Review Date: 03/26/2018 Generated: 04/02/18 11:54 am Comments DCP- Discharge Planning Updated by [email or web address]: Ness Herrera on 03/26/18 12:[address] Late Entry 03/26/18 @ 0945 Patient Name: BYRON CEDILLO Admission Status: Elective Accout number: [id number] Admission Date: 03-24-2018 : 1945 Admission Diagnosis: Attending: STEPHANY FREY Current LOS: 2 Anticipated DC Date: Planned Disposition: Home Primary Insurance: MEDICARE A & B Discharge Planning Comments: Drone Pilot: Ness Herrera DCPIA - Discharge Planning Initial Assessment Updated by [id number]: Ness Herrera on 03/26/18 1:41 pm * Is the patient Alert and Oriented? Yes * How many steps to enter\exit or inside your home? * PCP [place] * Pharmacy [facility] [place] * Preadmission Environment Home with Family * ADLs Independent * Equipment Cane * Other Equipment Walker * List name and contact numbers for known caregivers / representatives who currently or will assist patient after discharge: Anne Cedillo [phone] * Verbal permission to speak to the caregivers and representatives has been obtained from the patient. N/A * Community resources currently utilized None * Additional services required to return to the preadmission environment? No * Can the patient safely return to the preadmission environment? Yes * Has this patient been hospitalized within the prior 30 days at any hospital? No Last DP export: 03/26/18 12:43 p Patient Name: BYRON CEDILLO Page [id number] at 1054 All edits/amendments must be made on the electronic document DICTATION DATE: 04/02/18 1053 ASSET LIABILITY ANALYST: CHANG 04/02/18 1053 RPT#: [id number] DC DATE:04/01/18 STATUS: DIS IN [facility] [address] [place] [address] END OF REPORT
--- NOTE | ~2018-03-14 | MORECARE ---
CASE MANAGEMENT DISCHARGE SUMMARY PATIENT: BYRON CEDILLO UNIT: [id number] ADM DATE: 03/24/18 AGE: 73 : [birth year] SEX: M [facility] AUTHOR: CHANTELLE,DOC PHYSICIAN: REFERRING PHYSICIAN: STEPHANY FREY MD DATE OF SERVICE: 04/03/18 Discharge Plan Patient Name: BYRON CEDILLO Facility: [facility]:[place] : 1945 Planned Disposition: Home Anticipated Discharge Date: Discharge Date: 04/01/2018 Expected LOS: Initial Reviewer: [email or web address] Initial Review Date: 03/26/2018 Generated: 04/03/18 11:49 am Comments DCP- Discharge Planning Updated by [email or web address]: Ness Herrera on 04/03/18 9:[address] LATE ENTRY 04/01/18 @1015 Patient Name: BYRON CEDILLO Encounter No: [id number] : 1945 Primary Insurance: MEDICARE A & B Anticipated DC Date: Planned Disposition: Home External Planned Provider: : IMM EXPLAINED AND SERVED 04/01/18 @ 1015. PATIENT DENIES ANY DISCHARGE NEEDS. DCP follow-up note: Patient and family in agreement with discharge plan. No changes to plan. Case management will follow and assist as needed. Ness Herrera DCP- Discharge Planning Updated by [email or web address]: Ness Herrera on 03/26/18 12:[address] Late Entry 03/26/18 @ 0945 Patient Name: BYRON CEDILLO Admission Status: Elective Accout number: [id number] Admission Date: 03-24-2018 : 1945 Admission Diagnosis: Attending: STEPHANY FREY Current LOS: 2 Anticipated DC Date: Planned Disposition: Home Primary Insurance: MEDICARE A & B Discharge Planning Comments: Lineman: Ness Herrera DCPIA - Discharge Planning Initial Assessment Updated by [email or web address]: Ness Herrera on 03/26/18 1:41 pm * Is the patient Alert and Oriented? Yes * How many steps to enter\exit or inside your home? * PCP [place] * Pharmacy [facility] [place] * Preadmission Environment Home with Family * ADLs Independent * Equipment Cane * Other Equipment Walker * List name and contact numbers for known caregivers / representatives who currently or will assist patient after discharge: Anne Cedillo [phone] * Verbal permission to speak to the caregivers and representatives has been obtained from the patient. N/A * Community resources currently utilized None * Additional services required to return to the preadmission environment? No * Can the patient safely return to the preadmission environment? Yes * Has this patient been hospitalized within the prior 30 days at any hospital? No Coverage Notice Reviewer: [email or web address] Shelby Herrera Notice Issued Date-Time: 04/01/2018 10:15 Notice Type: IM Discharge Notice Notice Delivered To: Patient Relationship to Patient: Self Transportation Refrigeration Technician Name: Delivery Method: HAND - Hand Delivered Yanet Days: Prior Verbal Notification: Recipient Understood Notice: Yes Recipient Signature: Yes Med Rec Note Co-signed by Attending: Coverage Notice Comment: Last DP export: 04/02/18 9:54 Patient Name: BYRON CEDILLO Page [id number] at 1049 All edits/amendments must be made on the electronic document DICTATION DATE: 04/03/18 1049 OVERHEAD CRANE TECHNICIAN: CHANG 04/03/18 1049 RPT#: [id number] DC DATE:04/01/18 STATUS: DIS IN [facility] [address] [place] [address] END OF REPORT
[2018-03-14] MEDS ORDERED: BAYER CHEWABLE81 MG PO ×2 (10:35→10:36)
[2018-03-14] MEDS ORDERED: CO Q-10200 MG (10:37)
[2018-03-14] MEDS ORDERED: JARDIANCE10 MG PO (10:37)
[2018-03-14] MEDS ORDERED: REPATHA SY140 MG/1 M SC (10:39)
[2018-03-14] MEDS ORDERED: CINNAMON500 MG (10:40)
[2018-03-14] MEDS ORDERED: LIPITOR80 MG PO (10:40)
[2018-03-14 13:03] LABS: BASOPHILS 0.5 % (0-2); EOSINOPHILS 1.6 % (0-7); HEMATOCRIT 39.2 % (42.0-54.0); HEMOGLOBIN 12.9 g/dL (13.5-17.5); IMMATURE GRANULOCYTES 0.1 % (0-5); LYMPHOCYTES 31.3 % (15-50); MCH 31.9 pg (26.0-34.0); MCHC 32.9 g/dL (31.0-37.0); MCV 96.8 fL (80.0-100.0); MEAN PLATELET VOLUME 10.2 fL (7.4-10.4); MONOCYTES 9.1 % (2-11); NEUTROPHILS 57.4 % (40-80); PLATELET COUNT 232 10x3/uL (130-400); RBC 4.05 10x6/uL (4.20-6.10); RDW 14.7 % (11.5-14.5); WBC 7.7 10x3/uL (4.8-10.8)
[2018-03-14 13:08] LABS: APPEARANCE CLEAR (CLEAR); BILIRUBIN NEGATIVE (NEGATIVE); COLOR YELLOW (YELLOW); GLUCOSE 1000 mg/dL (NEGATIVE); KETONE SMALL mg/dL (NEGATIVE); NITRITE NEGATIVE (NEGATIVE); PROTEIN NEGATIVE (NEGATIVE); UROBILINOGEN NORMAL (NORMAL)
[2018-03-14 13:10] LABS: APTT 26.2 SECONDS (22.8-39.4); INR 1.07 (0.85-1.17); PROTIME 13.4 SECONDS (11.6-15.0)
[2018-03-14 13:16] LABS: BACTERIA FEW /hpf (NONE SEEN); EPITHELIAL CELLS RARE /hpf (0-5); RED CELLS - URINE OCC /hpf (0-5); WHITE CELLS - URINE RARE /hpf (0-5)
[2018-03-14 13:29] LABS: ANION GAP 13.7 mmol/L (8-16); BILIRUBIN - TOTAL 0.79 mg/dL (0.2-1.3); CALCIUM 9.6 mg/dL (8.5-10.1); CARBON DIOXIDE 28.5 mmol/L (21.0-32.0); CREATININE - SERUM 1.1 mg/dL (0.6-1.3); POTASSIUM - SERUM 4.2 mmol/L (3.5-5.1); PROTEIN - SERUM 7.4 g/dL (6.4-8.2); T4 THYROXIN - FREE 1.03 ng/dL (0.76-1.46); THYROID STIMULATING HORMONE 1.47 uIU/mL (0.36-3.74); URIC ACID 4.1 mg/dL (2.6-7.2)
[2018-03-20] MEDS ORDERED: XALATAN 0.0052.5 ML EACH EYE (13:42)
[2018-03-20 13:43] LABS: EOSINOPHILS 1.8 % (0-7); HEMATOCRIT 40.8 % (42.0-54.0); HEMOGLOBIN 13.4 g/dL (13.5-17.5); IMMATURE GRANULOCYTES 0.1 % (0-5); LYMPHOCYTES 27.7 % (15-50); MCH 31.8 pg (26.0-34.0); MCHC 32.8 g/dL (31.0-37.0); MCV 96.9 fL (80.0-100.0); MEAN PLATELET VOLUME 10.1 fL (7.4-10.4); NEUTROPHILS 64.4 % (40-80); PLATELET COUNT 251 10x3/uL (130-400); RBC 4.21 10x6/uL (4.20-6.10); RDW 14.8 % (11.5-14.5); WBC 7.6 10x3/uL (4.8-10.8)
[2018-03-20 14:01] LABS: INR 1.13 (0.85-1.17)
[2018-03-20 14:02] LABS: APTT 27.2 SECONDS (22.8-39.4)
[2018-03-20 14:19] LABS: ALBUMIN 3.9 g/dL (3.4-5.0); ANION GAP 12.2 mmol/L (8-16); BILIRUBIN - TOTAL 0.59 mg/dL (0.2-1.3); CALCIUM 9.4 mg/dL (8.5-10.1); CARBON DIOXIDE 29.8 mmol/L (21.0-32.0); CREATININE - SERUM 1.2 mg/dL (0.6-1.3); PROTEIN - SERUM 7.8 g/dL (6.4-8.2); THYROID STIMULATING HORMONE 2.04 uIU/mL (0.36-3.74)
[2018-03-20 14:31] LABS: APPEARANCE CLEAR (CLEAR); BILIRUBIN NEGATIVE (NEGATIVE); COLOR YELLOW (YELLOW); EPITHELIAL CELLS 0-5 /hpf (0-5); GLUCOSE 250 mg/dL (NEGATIVE); KETONE NEGATIVE (NEGATIVE); NITRITE NEGATIVE (NEGATIVE); PROTEIN NEGATIVE (NEGATIVE); RED CELLS - URINE 0-5 /hpf (0-5); SPECIFIC GRAVITY 1.015 (1.005-1.020); UROBILINOGEN NORMAL (NORMAL); WHITE CELLS - URINE 0-5 /hpf (0-5)
[2018-03-24] VITALS (52 sets, daily range): BP systolic 102–172; BP diastolic 41–81; BMI 19.8; BMI 21.3
[2018-03-25] VITALS (41 sets, daily range): BP systolic 95–136; BP diastolic 41–74; Ht 180.3 cm; Wt 68.4 kg
[2018-03-25 06:59] LABS: HEMATOCRIT 33.9 % (42.0-54.0); HEMOGLOBIN 10.8 g/dL (13.5-17.5); MCH 31.7 pg (26.0-34.0); MCHC 31.9 g/dL (31.0-37.0); MCV 99.4 fL (80.0-100.0); MEAN PLATELET VOLUME 10.3 fL (7.4-10.4); RBC 3.41 10x6/uL (4.20-6.10); RDW 15.4 % (11.5-14.5); WBC 11.7 10x3/uL (4.8-10.8)
[2018-03-25 07:39] LABS: ALBUMIN 3.1 g/dL (3.4-5.0); ANION GAP 21.9 mmol/L (8-16); BILIRUBIN - TOTAL 0.83 mg/dL (0.2-1.3); CALCIUM 7.5 mg/dL (8.5-10.1); CARBON DIOXIDE 21.5 mmol/L (21.0-32.0); CREATININE - SERUM 1.2 mg/dL (0.6-1.3); POTASSIUM - SERUM 4.4 mmol/L (3.5-5.1)
[2018-03-26] VITALS (24 sets, daily range): BP systolic 95–147; BP diastolic 54–81
[2018-03-26 07:14] LABS: ALBUMIN 2.9 g/dL (3.4-5.0); ANION GAP 16.2 mmol/L (8-16); BILIRUBIN - TOTAL 1.01 mg/dL (0.2-1.3); CALCIUM 8.3 mg/dL (8.5-10.1); CREATININE - SERUM 1.1 mg/dL (0.6-1.3); POTASSIUM - SERUM 3.9 mmol/L (3.5-5.1); PROTEIN - SERUM 6.4 g/dL (6.4-8.2)
[2018-03-26 07:15] LABS: HEMATOCRIT 32.9 % (42.0-54.0); HEMOGLOBIN 10.5 g/dL (13.5-17.5); MCH 31.6 pg (26.0-34.0); MCHC 31.9 g/dL (31.0-37.0); MCV 99.1 fL (80.0-100.0); MEAN PLATELET VOLUME 10.8 fL (7.4-10.4); RBC 3.32 10x6/uL (4.20-6.10); RDW 15.7 % (11.5-14.5); WBC 11.9 10x3/uL (4.8-10.8)
[2018-03-26 07:16] LABS: CARBON DIOXIDE 27.7 mmol/L (21.0-32.0)
[2018-03-26 22:55] LABS: MAGNESIUM - SERUM 2.5 mg/dL (1.8-2.4); POTASSIUM - SERUM 3.6 mmol/L (3.5-5.1)
[2018-03-27] VITALS (24 sets, daily range): BP systolic 93–135; BP diastolic 47–78
[2018-03-27 05:27] LABS: HEMOGLOBIN 10.3 g/dL (13.5-17.5); MCH 31.3 pg (26.0-34.0); MCHC 31.2 g/dL (31.0-37.0); MCV 100.3 fL (80.0-100.0); MEAN PLATELET VOLUME 10.6 fL (7.4-10.4); RBC 3.29 10x6/uL (4.20-6.10); RDW 15.8 % (11.5-14.5); WBC 9.7 10x3/uL (4.8-10.8)
[2018-03-27 05:48] LABS: ALBUMIN 2.7 g/dL (3.4-5.0); ALKALINE PHOSPHATASE 60 U/L (46-116); ALT (SGPT) 25 U/L (10-68); BILIRUBIN - TOTAL 0.96 mg/dL (0.2-1.3); CALC OSMOLALITY 295 mosm/kg (275-300); CALCIUM 8.6 mg/dL (8.5-10.1); CARBON DIOXIDE 27.3 mmol/L (21.0-32.0); CHLORIDE - SERUM 108 mmol/L (98-107); CREATININE - SERUM 0.9 mg/dL (0.6-1.3); GLUCOSE 139 mg/dL (74-106); PROTEIN - SERUM 6.3 g/dL (6.4-8.2); SODIUM 144 mmol/L (136-145); UREA NITROGEN 33 mg/dL (7-18); eGFR NON AFRICAN AMERICAN 88 mL/min (90-120)
[2018-03-28] VITALS (21 sets, daily range): BP systolic 98–140; BP diastolic 57–621
[2018-03-28 05:23] LABS: HEMATOCRIT 30.9 % (42.0-54.0); HEMOGLOBIN 9.8 g/dL (13.5-17.5); MCH 31.3 pg (26.0-34.0); MCHC 31.7 g/dL (31.0-37.0); MCV 98.7 fL (80.0-100.0); MEAN PLATELET VOLUME 10.5 fL (7.4-10.4); RBC 3.13 10x6/uL (4.20-6.10); RDW 15.3 % (11.5-14.5); WBC 7.5 10x3/uL (4.8-10.8)
[2018-03-28 05:39] LABS: ALBUMIN 2.7 g/dL (3.4-5.0); ALKALINE PHOSPHATASE 66 U/L (46-116); ALT (SGPT) 27 U/L (10-68); BILIRUBIN - TOTAL 0.91 mg/dL (0.2-1.3); CALC OSMOLALITY 299 mosm/kg (275-300); CALCIUM 8.5 mg/dL (8.5-10.1); CARBON DIOXIDE 29.9 mmol/L (21.0-32.0); CHLORIDE - SERUM 108 mmol/L (98-107); GLUCOSE 121 mg/dL (74-106); PROTEIN - SERUM 6.4 g/dL (6.4-8.2); SODIUM 145 mmol/L (136-145); UREA NITROGEN 40 mg/dL (7-18); eGFR NON AFRICAN AMERICAN 78 mL/min (90-120)
[2018-03-28 05:40] LABS: POTASSIUM - SERUM 3.3 mmol/L (3.5-5.1)
[2018-03-29] VITALS (24 sets, daily range): BP systolic 101–139; BP diastolic 51–93
[2018-03-29 03:58] LABS: HEMOGLOBIN 9.8 g/dL (13.5-17.5); MCH 31.3 pg (26.0-34.0); MCHC 31.6 g/dL (31.0-37.0); MEAN PLATELET VOLUME 10.2 fL (7.4-10.4); RBC 3.13 10x6/uL (4.20-6.10); WBC 7.4 10x3/uL (4.8-10.8)
[2018-03-29 04:28] LABS: ALBUMIN 2.5 g/dL (3.4-5.0); ALKALINE PHOSPHATASE 61 U/L (46-116); ALT (SGPT) 27 U/L (10-68); BILIRUBIN - TOTAL 0.82 mg/dL (0.2-1.3); CALC OSMOLALITY 296 mosm/kg (275-300); CALCIUM 8.4 mg/dL (8.5-10.1); CARBON DIOXIDE 26.3 mmol/L (21.0-32.0); CHLORIDE - SERUM 108 mmol/L (98-107); CREATININE - SERUM 0.9 mg/dL (0.6-1.3); GLUCOSE 149 mg/dL (74-106); MAGNESIUM - SERUM 1.9 mg/dL (1.8-2.4); POTASSIUM - SERUM 3.6 mmol/L (3.5-5.1); PROTEIN - SERUM 5.9 g/dL (6.4-8.2); SODIUM 144 mmol/L (136-145); UREA NITROGEN 31 mg/dL (7-18); eGFR NON AFRICAN AMERICAN 88 mL/min (90-120)
[2018-03-30] VITALS (26 sets, daily range): BP systolic 91–136; BP diastolic 49–643
[2018-03-30 05:52] LABS: HEMATOCRIT 33.6 % (42.0-54.0); HEMOGLOBIN 10.7 g/dL (13.5-17.5); MCH 31.4 pg (26.0-34.0); MCHC 31.8 g/dL (31.0-37.0); MCV 98.5 fL (80.0-100.0); RBC 3.41 10x6/uL (4.20-6.10); RDW 15.1 % (11.5-14.5); WBC 8.3 10x3/uL (4.8-10.8)
[2018-03-30 06:18] LABS: ALBUMIN 2.7 g/dL (3.4-5.0); BILIRUBIN - TOTAL 0.72 mg/dL (0.2-1.3); CALCIUM 8.8 mg/dL (8.5-10.1); CARBON DIOXIDE 26.3 mmol/L (21.0-32.0); CREATININE - SERUM 1.1 mg/dL (0.6-1.3); POTASSIUM - SERUM 4.3 mmol/L (3.5-5.1); PROTEIN - SERUM 6.4 g/dL (6.4-8.2)
[2018-03-31] VITALS (15 sets, daily range): BP systolic 99–154; BP diastolic 62–80
[2018-03-31 05:14] LABS: HEMATOCRIT 33.4 % (42.0-54.0); HEMOGLOBIN 10.8 g/dL (13.5-17.5); MCH 31.7 pg (26.0-34.0); MCHC 32.3 g/dL (31.0-37.0); MCV 97.9 fL (80.0-100.0); MEAN PLATELET VOLUME 10.4 fL (7.4-10.4); RBC 3.41 10x6/uL (4.20-6.10); RDW 15.2 % (11.5-14.5); WBC 9.3 10x3/uL (4.8-10.8)
[2018-03-31 05:34] LABS: ALBUMIN 2.7 g/dL (3.4-5.0); ANION GAP 12.8 mmol/L (8-16); BILIRUBIN - TOTAL 0.66 mg/dL (0.2-1.3); CALCIUM 8.3 mg/dL (8.5-10.1); CARBON DIOXIDE 27.2 mmol/L (21.0-32.0); CREATININE - SERUM 1.1 mg/dL (0.6-1.3); PROTEIN - SERUM 6.5 g/dL (6.4-8.2)
[2018-04-01] VITALS: BP 126/69
[2018-04-01 04:00] VITALS: BP 131/73
[2018-04-01 05:23] LABS: HEMATOCRIT 30.8 % (42.0-54.0); HEMOGLOBIN 10.1 g/dL (13.5-17.5); MCHC 32.8 g/dL (31.0-37.0); MCV 97.5 fL (80.0-100.0); MEAN PLATELET VOLUME 10.2 fL (7.4-10.4); RBC 3.16 10x6/uL (4.20-6.10); RDW 14.8 % (11.5-14.5); WBC 8.2 10x3/uL (4.8-10.8)
[2018-04-01 06:17] LABS: ALBUMIN 2.3 g/dL (3.4-5.0); ALKALINE PHOSPHATASE 70 U/L (46-116); BILIRUBIN - TOTAL 0.55 mg/dL (0.2-1.3); CALC OSMOLALITY 290 mosm/kg (275-300); CHLORIDE - SERUM 107 mmol/L (98-107); GLUCOSE 138 mg/dL (74-106); POTASSIUM - SERUM 4.1 mmol/L (3.5-5.1); PROTEIN - SERUM 5.9 g/dL (6.4-8.2); SODIUM 143 mmol/L (136-145); UREA NITROGEN 24 mg/dL (7-18); eGFR NON AFRICAN AMERICAN 78 mL/min (90-120)
[2018-04-01 06:20] LABS: ALT (SGPT) 32 U/L (10-68)
[2018-04-01 07:00] VITALS: BP 131/73
[2018-04-01] MEDS ORDERED: BETAPACE 80 MG80 MG PO (08:18)
[2018-04-01] MEDS ORDERED: K-DUR20 MEQ PO (08:20)
[2018-04-01] MEDS ORDERED: COLACE100 MG PO (08:22)
[2018-04-01] MEDS ORDERED: PERCOCET 5-3251 TAB PO (08:24)
[2018-04-01 11:00] VITALS: BP 137/62
== END 2018-04-01 14:40 | disposition home or self-care (01) | DRG 236 ==
LOC: D.SDCHOLD 11:00 → D.CVICU 03-24 05:00 → D.SDCHOLD 03-24 07:30 → D.CVICU 03-24 10:51 → D.SDCHOLD 03-24 11:00 → D.CVICU 04-01 14:40
PROVIDERS: Internal Medicine Cardiovascular Disease; Thoracic Surgery (Cardiothoracic Vascular Surgery)
PROC: 021109W Bypass Coronary Artery, Two Arteries from Aorta with Autologous Venous Tissue, Open Approach (ICD-10-PCS; 2018-03-24)
PROC: 06BP0ZZ Excision of Right Saphenous Vein, Open Approach (ICD-10-PCS; 2018-03-24)
PROC: 5A1221Z Performance of Cardiac Output, Continuous (ICD-10-PCS; 2018-03-24)
PROC: B24BZZ4 Ultrasonography of Heart with Aorta, Transesophageal (ICD-10-PCS; 2018-03-24)
PROC: 02100Z9 Bypass Coronary Artery, One Artery from Left Internal Mammary, Open Approach (ICD-10-PCS; principal; 2018-03-24 07:30)
DX: I25.110 Atherosclerotic heart disease of native coronary artery with unstable angina pectoris (principal); I48.92 Unspecified atrial flutter; E78.5 Hyperlipidemia, unspecified; E11.9 Type 2 diabetes mellitus without complications; R00.1 Bradycardia, unspecified; R53.83 Other fatigue; I10 Essential (primary) hypertension; I48.91 Unspecified atrial fibrillation; D64.9 Anemia, unspecified; I42.9 Cardiomyopathy, unspecified; I34.0 Nonrheumatic mitral (valve) insufficiency; K59.00 Constipation, unspecified

== ENCOUNTER 2018-04-19 16:54 | Emergency (ER) | payer MEDICARE, BC ==
[~2018-04-19] VITALS: Ht 180.3 cm; Wt 65.0 kg
[~2018-04-19 16:54] MED LIST changes: +BAYER CHEWABLE81 MG PO; +BETAPACE 80 MG80 MG PO; +CINNAMON500 MG; +CO Q-10200 MG; +COLACE100 MG PO; +JARDIANCE10 MG PO; +K-DUR20 MEQ PO; +LIPITOR80 MG PO; +PERCOCET 5-3251 TAB PO; +REPATHA SY140 MG/1 M SC; +XALATAN 0.0052.5 ML EACH EYE
[2018-04-19 17:03] VITALS: Ht 180.3 cm; Wt 65.0 kg
[2018-04-19 17:54] LABS: BASOPHILS 0.3 % (0-2); EOSINOPHILS 2.5 % (0-7); HEMATOCRIT 35.4 % (42.0-54.0); HEMOGLOBIN 11.4 g/dL (13.5-17.5); IMMATURE GRANULOCYTES 0.2 % (0-5); LYMPHOCYTES 27.7 % (15-50); MCH 31.8 pg (26.0-34.0); MCHC 32.2 g/dL (31.0-37.0); MCV 98.6 fL (80.0-100.0); MEAN PLATELET VOLUME 10.1 fL (7.4-10.4); MONOCYTES 11.1 % (2-11); NEUTROPHILS 58.2 % (40-80); PLATELET COUNT 231 10x3/uL (130-400); RBC 3.59 10x6/uL (4.20-6.10); RDW 14.6 % (11.5-14.5); WBC 5.9 10x3/uL (4.8-10.8)
[2018-04-19 18:11] LABS: ALBUMIN 3.2 g/dL (3.4-5.0); ANION GAP 15.9 mmol/L (8-16); BILIRUBIN - TOTAL 0.35 mg/dL (0.2-1.3); CALCIUM 8.6 mg/dL (8.5-10.1); CARBON DIOXIDE 26.2 mmol/L (21.0-32.0); CREATININE - SERUM 1.1 mg/dL (0.6-1.3); POTASSIUM - SERUM 4.1 mmol/L (3.5-5.1); PROTEIN - SERUM 7.3 g/dL (6.4-8.2)
[2018-04-19 19:21] LABS: APPEARANCE CLEAR (CLEAR); BILIRUBIN NEGATIVE (NEGATIVE); COLOR YELLOW (YELLOW); GLUCOSE 1000 mg/dL (NEGATIVE); KETONE NEGATIVE (NEGATIVE); NITRITE NEGATIVE (NEGATIVE); PROTEIN NEGATIVE (NEGATIVE); RED CELLS - URINE 0-5 /hpf (0-5); SPECIFIC GRAVITY 1.015 (1.005-1.020); UROBILINOGEN NORMAL (NORMAL); WHITE CELLS - URINE NSEEN /hpf (0-5)
[2018-04-19 21:06] VITALS: BP 140/73
== END 2018-04-19 21:30 | disposition other institution (70) ==
LOC: D.ER 16:54
PROVIDERS: Emergency Medicine
DX: I63.81 Other cerebral infarction due to occlusion or stenosis of small artery (principal); G81.94 Hemiplegia, unspecified affecting left nondominant side; E11.9 Type 2 diabetes mellitus without complications; I10 Essential (primary) hypertension; I25.10 Atherosclerotic heart disease of native coronary artery without angina pectoris

== ENCOUNTER 2018-04-21 17:03 | Inpatient (IN) | payer MEDICARE, BC ==
[~2018-04-21] VITALS: Ht 180.3 cm; Wt 64.9 kg
--- NOTE | 2018-04-21 19:00 | NUR ---
PT AWAKE PLEASANT, ALL CONSENTS SIGNED, ASSESSMENTS COMPLETED, PT ARRIVED 1730 VIA WC FROM [facility], ACCOMPANIED BY AND HOSPITAL STAFF, ORIENTATED TO ROOM, STAFF, AND UNIT, FLUIDS AND CALL LIGHT WITHIN REACH
[2018-04-21 20:27] VITALS: BP 160/73; BMI 19.9
--- NOTE | 2018-04-21 23:47 | NUR ---
PT ASLEEP NO NEEDS NOTED FLUIDS AND CALL LIGHT WITHIN REACH
--- NOTE | 2018-04-22 03:01 | NUR ---
PT ASLEEP NO NEEDS NOTED FLUIDS AND CALL LIGHT WITHIN REACH
--- NOTE | 2018-04-22 05:28 | NUR ---
PT ASLEEP NO NEEDS NOTED FLUIDS AND CALL LIGHT WITHIN REACH
[2018-04-22 07:04] LABS: BASOPHILS 0.8 % (0-2); EOSINOPHILS 3.2 % (0-7); HEMATOCRIT 35.4 % (42.0-54.0); HEMOGLOBIN 11.6 g/dL (13.5-17.5); IMMATURE GRANULOCYTES 0.2 % (0-5); LYMPHOCYTES 45.9 % (15-50); MCH 31.5 pg (26.0-34.0); MCHC 32.8 g/dL (31.0-37.0); MCV 96.2 fL (80.0-100.0); MEAN PLATELET VOLUME 10.3 fL (7.4-10.4); MONOCYTES 12.6 % (2-11); NEUTROPHILS 37.3 % (40-80); PLATELET COUNT 242 10x3/uL (130-400); RBC 3.68 10x6/uL (4.20-6.10); RDW 14.2 % (11.5-14.5); WBC 5.3 10x3/uL (4.8-10.8)
[2018-04-22 07:15] LABS: CALC OSMOLALITY 290 mosm/kg (275-300); CALCIUM 8.6 mg/dL (8.5-10.1); CARBON DIOXIDE 25.6 mmol/L (21.0-32.0); CHLORIDE - SERUM 106 mmol/L (98-107); GLUCOSE 124 mg/dL (74-106); POTASSIUM - SERUM 3.3 mmol/L (3.5-5.1); SODIUM 143 mmol/L (136-145); UREA NITROGEN 26 mg/dL (7-18); eGFR NON AFRICAN AMERICAN 78 mL/min (90-120)
--- NOTE | 2018-04-22 07:23 | NUR ---
NO CHANGE IN ASSESSMENT. RESTING QUIETLY WO DISTRESS.
[2018-04-22 08:00] VITALS: BP 154/74
--- NOTE | 2018-04-22 08:15 | NUR ---
PT RESTING IN BED WITH EYES OPEN CALL LIGHT IN REACH WILL MONITER
--- NOTE | 2018-04-22 18:24 | NUR ---
PT RESTING IN BED WITH EYES OPEN CALL LIGHT IN REACH NO PROBLEMS WILL MONITER
[2018-04-22 19:00] VITALS: BP 128/64
--- NOTE | 2018-04-22 19:23 | NUR ---
PATIENT RECEIVED LAYING IN BED. PATIENT VITAL SIGNS & ASSESSMENT DONE. PATIENT HAD NO C/O PAIN OR DISTRESS. PATIENT BED LOW. CALL LIGHT WITHIN REACH. WILL CONTINUE TO MONITOR.
--- NOTE | 2018-04-22 19:40 | NUR ---
PATIENT RECEIVED LAYING IN BED. VITAL SIGNS & ASSESSMENT DONE. PATIENT HAD NO C/O PAIN OR DISTRESS. PATIENT BED LOW. CALL LIGHT WITHINREACH. WILL CONTINUE TO MONITOR.
--- NOTE | 2018-04-23 00:25 | NUR ---
PATIENT EYES CLOSED. RESPIRATIONS 18 & EVEN. PATIENT BED LOW. ALARM ON. WILL CONTINUE TO MONITOR.
--- NOTE | 2018-04-23 04:16 | NUR ---
PATIENT USED CALL LIGHT FOR ASSIST TO BATHROOM. PATIENT ALARM TURNED OFF. PATIENT HAD VOID & RETURNED TO BED. PATIENT ALARM TURNED ON. CALL LIGHT WITHIN REACH. BED LOW. WILL CONTINUE TO MONITOR.
--- NOTE | 2018-04-23 04:35 | NUR ---
RESTING IN BED. RESPIRATIONS UNLABORED. NOTED LEFT SIDED WEAKNESS. ALERT AND ORIENTED. CABG X 1 MONTH AGO. CALL LIGHT IN REACH.
[2018-04-23 08:00] VITALS: BP 139/74
--- NOTE | 2018-04-23 08:00 | NUR ---
PT RESTING IN BED, EATING BREAKFAST. PT DENIES NEEDS AT THIS TIME. WCTM.
--- NOTE | 2018-04-23 08:15 | NUR ---
PT RESTING IN BED WITH EYES OPEN CALL LIGHT IN REACH NO PROBLEMS WILL MONITER
[2018-04-23 12:59] VITALS: BMI 19.9
--- NOTE | 2018-04-23 16:44 | NUR ---
PT RESTING IN BED WITH EYES OPEN CALL LIGHT IN REACH NO PROBLEMS WILL MONITER
--- NOTE | 2018-04-23 20:15 | NUR ---
THE PATIENT WAS IN BED AND WATCHING TELEVISION WHEN STAFF ENTERED THE PATIENTS ROOM. BED IN LOW POSITION, SIDERAILS X2, AND CALL LIGHT WITHIN REACH. THE PATIENT WAS EDUCATED ON USE OF THE CALL LIGHT AND DEMONSTRATED UNDERSTANDING VIA TEACHBACK METHOD. THE PATIENT HAS NO QUESTIONS OR CONCERNS AT THIS TIME.
[2018-04-23 22:21] VITALS: BP 137/76
--- NOTE | 2018-04-24 01:48 | NUR ---
THE PATIENT APPEARS TO BE COMFORTABLE AND ASLEEP. BED REMAINS IN THE LOW POSITION WITH SIDERAILS X2 AND CALL LIGHT WITHIN REACH.
--- NOTE | 2018-04-24 08:05 | NUR ---
TELEMETRY CALLED WITH [facility] IN THE LOW 40'S. PT IS ASYMPTOMATIC. CARDIOLOGY CONSULTED. SPOKE WITH DR TRAYLOR. [facility].
[2018-04-24 08:20] VITALS: BP 143/74
--- NOTE | 2018-04-24 09:33 | NUR ---
PT AM MEDS ADMINISTERED. PT DENIES NEEDS. PT CURRENTLY PARTICIPATING IN THERAPY, WCJOSE.
[2018-04-24 09:35] VITALS: Ht 180.3 cm; Wt 64.9 kg
--- NOTE | 2018-04-24 19:52 | NUR ---
PATIENT RECEIVED SITTING UP IN BED WATCHING TV. PATIENT ASSESSMENT DONE. NO C/O PAIN OR DISTRESS. BED LOW. CALL LIGHT WITHIN REACH. WILL CONTINUE TO MONITOR.
[2018-04-24 20:00] VITALS: BP 157/70
--- NOTE | 2018-04-25 03:45 | NUR ---
RESTING IN BED WITH NO DISTRESS NOTED. RESPIRATIONS UNLABORED. CALL LIGHT IN REACH.
[2018-04-25 07:10] LABS: BASOPHILS 0.7 % (0-2); EOSINOPHILS 3.4 % (0-7); HEMATOCRIT 39.4 % (42.0-54.0); HEMOGLOBIN 12.9 g/dL (13.5-17.5); IMMATURE GRANULOCYTES 0.1 % (0-5); LYMPHOCYTES 42.8 % (15-50); MCH 31.4 pg (26.0-34.0); MCHC 32.7 g/dL (31.0-37.0); MCV 95.9 fL (80.0-100.0); MEAN PLATELET VOLUME 10.2 fL (7.4-10.4); MONOCYTES 9.7 % (2-11); NEUTROPHILS 43.3 % (40-80); PLATELET COUNT 253 10x3/uL (130-400); RBC 4.11 10x6/uL (4.20-6.10); RDW 14.4 % (11.5-14.5)
[2018-04-25 07:28] LABS: ANION GAP 18.2 mmol/L (8-16); CALCIUM 8.8 mg/dL (8.5-10.1); CREATININE - SERUM 1.1 mg/dL (0.6-1.3); POTASSIUM - SERUM 4.2 mmol/L (3.5-5.1)
--- NOTE | 2018-04-25 08:03 | NUR ---
PT SITTING UP IN BED EATING BREAKFAST, DENIES NEEDS. WCTM.
--- NOTE | 2018-04-25 10:12 | NUR ---
PT AM MEDS ADMINISTERED. PT DENIES NEEDS. WCTM.
--- NOTE | 2018-04-25 10:52 | NUR ---
PATIENT ADMITTED TO REHAB FROM AN OUTSIDE FACILITY. PCP IS DR. ROSA, DME AT HOME IS A CANE AND A WALKER. DISCHARGE PLANS ARE FOR PATIENT TO RETURN HOME. WILL CONTINUE TO FOLLOW WITH PATIENT.
--- NOTE | 2018-04-25 14:45 | NUR ---
PT RESTING IN BED, BRANDEN HAYES AT BEDSIDE. WCTM.
--- NOTE | 2018-04-25 18:03 | NUR ---
PT SITTING UP IN BED EATING DINNER, DENIES NEEDS. WCTM.
--- NOTE | 2018-04-25 19:30 | NUR ---
PT RESTING IN BED TALKING TO HIS BROTHER ON THE TELEPHONE. ALERT AND ORIENTED X 3. DENIES ANY PAIN OR DISCOMFORT. NO NEEDS VOICED. SR'S ARE UP X 2 IN BED. CALL LIGHT AND BEDSIDE TABLE ARE WITHIN EASY REACH.
[2018-04-25 20:53] VITALS: BP 168/81
--- NOTE | 2018-04-25 21:32 | NUR ---
PT IS SITTING ON THE SIDE OF HIS BED EATING JELLO AND VIET CRACKERS. NO FURTHER NEEDS VOICED.
--- NOTE | 2018-04-26 00:01 | NUR ---
RESTING IN BED WITH EYES CLOSED. NO DISTRESS NOTED.
--- NOTE | 2018-04-26 03:00 | NUR ---
PT RESTING IN BED WITH EYES CLOSED. USING BATHROOM PRN.
--- NOTE | 2018-04-26 08:15 | NUR ---
EATING BREAKFAST. ALERT AND ORIENTED. NO C/O PAIN. CL IN REACH.
--- NOTE | 2018-04-26 15:29 | NUR ---
SITTING UP IN WC IN ROOM. NO DISTRESS NOTED.
--- NOTE | 2018-04-26 17:01 | NUR ---
NO CHANGE IN ASSESSMENT. RESTING WO DISTRESS.
--- NOTE | 2018-04-26 21:51 | NUR ---
PT SHOWERED LEADS REMOVED AND REPLACED AFTER SHOWER, VITALS TAKEN,MEDS GIVEN,NO OTHER NEEDS NOTED FLUIDS AND CALL LIGHT WITHIN REACH
[2018-04-26 23:17] VITALS: BP 136/69
--- NOTE | 2018-04-27 00:18 | NUR ---
PT ASLEEP NO NEEDS NOTED FLUIDS AND CALL LIGHT WITHIN REACH
--- NOTE | 2018-04-27 03:09 | NUR ---
PT ASLEEP NO NEEDS NOTED FLUIDS AND CALL LIGHT WITHIN REACH
--- NOTE | 2018-04-27 07:25 | NUR ---
RESTING WITH EYES CLOSED. NO DISTRESS NOTED. CL IN REACH.
[2018-04-27 08:05] VITALS: BP 118/65
--- NOTE | 2018-04-27 10:09 | NUR ---
ALERT ADN ORIENTED. WATCHING TV. NO C/O PAIN.
--- NOTE | 2018-04-27 16:05 | NUR ---
NO CHANGE IN ASSESSMENT. RESP EVEN AND UNLABORED.
--- NOTE | 2018-04-27 21:05 | NUR ---
PT AWAKE WATCHING TV, NEEDED ICE WATER,GIVEN, FLUIDS AND CALL LIGHT WITHIN REACH
[2018-04-28 00:16] VITALS: BP 116/64
--- NOTE | 2018-04-28 01:21 | NUR ---
PT ASLEEP NO NEEDS NOTED FLUIDS AND CALL LIGHT WITHIN REACH
[2018-04-28 07:38] LABS: BASOPHILS 0.6 % (0-2); EOSINOPHILS 2.5 % (0-7); HEMATOCRIT 40.1 % (42.0-54.0); IMMATURE GRANULOCYTES 0.3 % (0-5); LYMPHOCYTES 45.8 % (15-50); MCH 31.4 pg (26.0-34.0); MCHC 32.4 g/dL (31.0-37.0); MCV 96.9 fL (80.0-100.0); MEAN PLATELET VOLUME 10.7 fL (7.4-10.4); MONOCYTES 8.4 % (2-11); NEUTROPHILS 42.4 % (40-80); PLATELET COUNT 301 10x3/uL (130-400); RBC 4.14 10x6/uL (4.20-6.10); RDW 14.2 % (11.5-14.5); WBC 6.5 10x3/uL (4.8-10.8)
[2018-04-28 07:43] LABS: ANION GAP 15.4 mmol/L (8-16); CALCIUM 9.2 mg/dL (8.5-10.1); CARBON DIOXIDE 24.6 mmol/L (21.0-32.0); CREATININE - SERUM 1.2 mg/dL (0.6-1.3)
--- NOTE | 2018-04-28 07:44 | NUR ---
PATIENT AWAKE AND ALERT. SITTING UP IN BED EATING BREAKFAST. NO COMPLAINTS AT THIS TIME. WILL CONTINUE TO MONITOR.
[2018-04-28 07:58] VITALS: BP 140/78
--- NOTE | 2018-04-28 09:46 | NUR ---
Pt is on a Diabetic diet with 90-100% intake of meals Glucerna ordered at breakfast Pt reports a good appetite and no nutritional requests or education needs Encouraged good po intake RD following
--- NOTE | 2018-04-28 12:45 | NUR ---
ATE 100% OF LUNCH. NO COMPLAINTS AT THIS TIME. WILL CONTINUE TO MONITOR.
--- NOTE | 2018-04-28 16:00 | NUR ---
PATIENT RESTING IN ROOM WATCHING TV. NO COMPLAINTS AT THIS TIME. TOLERATED THERAPY WELL THIS AFTERNOON. CALL LIGHT WITHIN [facility]. WILL CONTINUE TO MONITOR.
[2018-04-28 19:00] VITALS: BP 118/68
[2018-04-28 19:25] VITALS: BP 118/68
--- NOTE | 2018-04-28 19:25 | NUR ---
GREETED PATIENT AND INTRODUCED MYSELF HIS NURSE. PATIENT IS SITTING UP IN BED WATCHING TV. DENIES ANY PAIN AT THIS. BROUGHT PATIENT DIET LEMON [place] DRINK PER REQUEST. DENIES ANY FURTHER NEEDS AT THIS TIME. CALL LIGHT IN REACH.
--- NOTE | 2018-04-29 00:05 | NUR ---
PATIENT ASLEEP WITH EYES CLOSED LAYING IN SUPINE POSITION. HOB AT 30 DEGREES. RESPIRATIONS EVEN. NO SIGNS OF DISTRESS. CALL LIGHT IN REACH. BED IN LOWEST POSITION.
--- NOTE | 2018-04-29 02:14 | NUR ---
PATIENT ASLEEP WITH EYES CLOSED LAYING ON RIGHT SIDE. RESPIRATIONS EVEN. NO SIGNS OF DISTRESS. CALL LIGHT IN REACH. BED IN LOWEST POSITION. TM.
--- NOTE | 2018-04-29 04:40 | NUR ---
PATIENT ASLEEP WITH EYES CLOSED LAYING ON RIGHT SIDE. RESPIRATIONS EVEN. NO SIGNS OF DISTRESS. CALL LIGHT IN REACH.
--- NOTE | 2018-04-29 07:25 | NUR ---
RESTING QUIETLY IN BED.CL IN REACH.
[2018-04-29 08:00] VITALS: BP 164/68
--- NOTE | 2018-04-29 08:00 | NUR ---
PT RESTING IN BED EATING BREAKFAST TOLERATING WELL CALL LIGHT IN REACH WILL MONITER
--- NOTE | 2018-04-29 18:35 | NUR ---
PT RESTING IN BED WITH EYES OPEN CALL LIGHT IN REACH NO PROBLEMS WILL MONITER
--- NOTE | 2018-04-29 18:55 | NUR ---
PATIENT IS RESTING IN HIS BED. HE DENIES ANY NEEDS. CALL LIGHT IS IN REACH.
[2018-04-29 19:00] VITALS: BP 110/68
--- NOTE | 2018-04-29 21:28 | NUR ---
PATIENT IS RESTING IN HIS BED. HE DENIES ANY NEEDS. BED IS DOWN LOW WITH SIDE RAILS UP X2. CALL LIGHT IS IN REACH.
--- NOTE | 2018-04-30 | NUR ---
PATIENT IS SLEEPING. BED IS DOWN LOW AND SIDE RAILS ARE UP X2. CALL LIGHT IS IN REACH.
--- NOTE | 2018-04-30 04:00 | NUR ---
PATIENT IS SLEEPING. BED IS DOWN LOW. CALL LIGHT IS IN REACH.
--- NOTE | 2018-04-30 07:44 | NUR ---
ALERT AND ORIENTED. EATING BREAKFAST. NO C/O PAIN.
[2018-04-30 08:24] LABS: CALC OSMOLALITY 286 mosm/kg (275-300); CALCIUM 9.4 mg/dL (8.5-10.1); CARBON DIOXIDE 22.5 mmol/L (21.0-32.0); CHLORIDE - SERUM 104 mmol/L (98-107); GLUCOSE 132 mg/dL (74-106); POTASSIUM - SERUM 4.2 mmol/L (3.5-5.1); SODIUM 139 mmol/L (136-145); UREA NITROGEN 33 mg/dL (7-18); eGFR NON AFRICAN AMERICAN 78 mL/min (90-120)
[2018-04-30 08:31] LABS: HEMATOCRIT 40.1 % (42.0-54.0); HEMOGLOBIN 13.1 g/dL (13.5-17.5); MCH 31.3 pg (26.0-34.0); MCHC 32.7 g/dL (31.0-37.0); MCV 95.9 fL (80.0-100.0); MEAN PLATELET VOLUME 10.4 fL (7.4-10.4); PLATELET COUNT 300 10x3/uL (130-400); RBC 4.18 10x6/uL (4.20-6.10); WBC 6.4 10x3/uL (4.8-10.8)
[2018-04-30 09:30] LABS: ACANTHOCYTES OCC; EOSINOPHILS 1 % (0-7); LYMPHOCYTES 50 % (15-50); MONOCYTES 14 % (2-11); NEUTROPHILS 33 % (40-80); PLATELET ESTIMATE NORMAL
[2018-04-30 09:31] LABS: ROULEAUX OCC
[2018-04-30 10:03] VITALS: BP 100/60
--- NOTE | 2018-04-30 12:49 | NUR ---
PARTICIPATED IN THERAPY THIS AM.
--- NOTE | 2018-04-30 16:20 | NUR ---
NO CHANGE IN ASSESSMENT. RESTING IN ROOM WO C/O PAIN.
[2018-04-30 19:00] VITALS: BP 115/65
--- NOTE | 2018-04-30 19:00 | NUR ---
PT WATCHING TV NO NEEDS NOTED, FLUIDS AND CALL LIGHT WITHIN REACH
--- NOTE | 2018-04-30 19:53 | RHP ---
PATIENT: BYRON CEDILLO MEDICAL RECORD: [id number] ACCOUNT: [id number] [id number] 49 ADMISSION DATE: 04/21/18 REHABILITATION HISTORY AND PHYSICAL EXAMINATION POST ADMISSION PHYSICIAN EXAMINATION DATE OF ADMISSION: 04/21/2018 ADMITTING DIAGNOSIS: CVA. HISTORY OF PRESENT ILLNESS: The patient is a gentleman who is admitted secondary to a right lacunar infarct. 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 He is discharged home. He is doing fine. On 04/19/2018, he started dragging his left foot. He went to the Emergency Room. CT was negative; however, MRI showed a 6-mm right lacunar infarct, he was transferred to [facility] in [place] for further neurological evaluation. Echo showed left ventricular ejection fraction of 55%. His carotid ultrasounds were fine. He was started on Lipitor and aspirin. This was increased from 81 to 325. He is tolerating a cardiac diet and he is unable to swallow and eat. He has a BM on 04/20/2018 and he states he has had no difficulty with urination. Surgical wounds to his chest are healing well. Prior to his CABG, he was living at home with his , independent with ambulation, transfers and ADLs. He is now ambulating 15 feet with min assist with 2 people helping him, unsteady on his feet. He requires min assist with bathing, toileting, transfers, supervision with eating, grooming and dressing. He is also having some difficulty with his short-term memory. He is not safe to return home at this time, would benefit from acute inpatient rehab stay. COMORBIDITIES: Includes coronary artery disease and diabetes. PAST MEDICAL HISTORY: Significant for hypertension, coronary artery disease and diabetes. PAST SURGICAL HISTORY: Please see previous charts. ALLERGIES: No known drug allergies. CURRENT MEDICATIONS: Include aspirin 325, he is on potassium 20 mEq daily, metformin XR 1000 mg daily. He is on Cozaar 25 mg daily, Jardiance 10 mg daily, Colace 100 mg daily, Lipitor 80 mg, Sotalol 80 mg b.i.d., Xalatan eyedrops and polyethylene glycol 17 grams in 8 ounces of water daily. HABITS: No current alcohol or tobacco use. FAMILY HISTORY: Noncontributory. SOCIAL HISTORY: The patient hopes to return back home with his . REVIEW OF SYSTEMS: GENERAL: He does complain of some weakness. HEENT: Denies cold, cough, or congestion. CARDIOVASCULAR: He denies chest pain. PHYSICAL EXAMINATION: VITAL SIGNS: Stable, afebrile. HISTORY AND PHYSICAL [id number] BYRON CEDILLO GENERAL: Elderly gentleman in no acute distress, alert upon exam. HEENT: Atraumatic and normocephalic. Mucosa moist. NECK: Supple. No lymphadenopathy. LUNGS: Clear at this time. HEART: Regular rate and rhythm. ABDOMEN: Benign. EXTREMITIES: No clubbing, cyanosis or edema. NEUROLOGIC: Consistent with CVA. LABORATORY DATA: His hemoglobin and hematocrit are 11 and 35. His white count is normal. His admit chemistry showed sodium 143, potassium 3.3, BUN and creatinine of 26 and 1.0 and blood sugar is noted to be 124. ASSESSMENT: This 73-year-old gentleman admitted to the rehab with a working diagnosis of cerebrovascular accident. The patient has potential to make improvement. We instituted the following multidisciplinary therapies include but not limited to physical, occupational, respiratory, speech, nutritional services, prosthetics and orthotics. Given his complex medical condition and risk for medical complications, rehabilitation services cannot be provided at a lower level of care such as senior care facility. PLAN: 1. Admit to [facility] for intensive inpatient therapy to include the following disciplines: A. Physical therapy to improve gait, all transfer skills and bed mobility to a modified independent level. B. Occupational therapy to a modified independent level. C. Case management to assist with discharge planning and placement options. D. Nutrition to assist with nutritional needs. E. Rehabilitation nursing to assist in monitoring the patient's underlying medical conditions and to assist with any type of bowel or bladder management. 2. The patient's current medication and medical care will be continued. 3. The patient will be placed on standard fall precautions. 4. I am going to follow him up at lunch with the care team and also with him. TRANSINT:[id number] Voice Confirmation ID: [id number] DOCUMENT ID: [id number] ROS notes whether there has been none or any medical/functional change since admission: - No change since preadmission screen. ROS attests patient continues to be appropriate for IRF: - Continues to be appropriate. HISTORY AND PHYSICAL [id number] BYRON CEDILLO SCOTT MD at 1951 CC: [id number] DICTATION DATE: 04/23/18920 TRUCK DRIVER HEAVY: 04/23/18 1037 ADM IN [facility] [address] [id number]
--- NOTE | 2018-04-30 23:27 | NUR ---
PT ASLEEP NO NEEDS NOTED ALARM WAIVER SIGNED IN CHART, TOILETS SELF, FLUIDS AND CALL LIGHT WIHIN REACH
--- NOTE | 2018-05-01 04:13 | NUR ---
PT ASLEEP NO NEEDS NOTED FLUIDS AND CALL LIGHT WITHIN REACH
--- NOTE | 2018-05-01 07:25 | NUR ---
PT SITTING UP IN BED. CL IN REACH. PT DENIES NEEDS OR PAIN. BED IN LOW POSITION. SIDE RAILS X2. RESP EVEN AND UNLABORED. DELIVERED BREAKFAST TO ROOM. WILL CONTINUE TO MONITOR.
[2018-05-01 07:44] LABS: ANION GAP 15.1 mmol/L (8-16); CALCIUM 9.3 mg/dL (8.5-10.1); CARBON DIOXIDE 24.3 mmol/L (21.0-32.0); CREATININE - SERUM 1.1 mg/dL (0.6-1.3); POTASSIUM - SERUM 4.4 mmol/L (3.5-5.1)
[2018-05-01 08:00] VITALS: BP 139/78
[2018-05-01] MEDS ORDERED: BETAPACE 80 MG80 MG PO (08:26)
[2018-05-01] MEDS ORDERED: ASPIRIN325 MG PO (08:26)
[2018-05-01] MEDS ORDERED: COZAAR25 MG PO (08:26)
[2018-05-01 08:29] LABS: HEMOGLOBIN 13.3 g/dL (13.5-17.5); LYMPHOCYTES 49.4 % (15-50); MCH 31.7 pg (26.0-34.0); MCHC 33.3 g/dL (31.0-37.0); MCV 95.5 fL (80.0-100.0); MEAN PLATELET VOLUME 10.6 fL (7.4-10.4); NEUTROPHILS 39.7 % (40-80); PLATELET COUNT 263 10x3/uL (130-400); RBC 4.19 10x6/uL (4.20-6.10); RDW 13.8 % (11.5-14.5); WBC 5.9 10x3/uL (4.8-10.8)
--- NOTE | 2018-05-01 09:43 | NUR ---
PATIENT DISCHARGING HOME TODAY WITH FAMILY. [facility] WILL PROVIDE THERAPY AT HOME. NO NEW DME NEEDED AT THIS TIME. DR. ROSA 05/13/18 @ 10:15. PATIENT CHOICE FORM FOR HOME HEALTH AND [facility] FORMS SIGNED AND FILED IN CHART. [employer] INSTRUCTIONS WITH [employer] FAXED TO PCP AND TO HOME HEALTH.
--- NOTE | 2018-05-01 10:16 | NUR ---
PT SITTING UP IN BED. CL IN REACH. PT DENIES NEEDS OR PAIN.
--- NOTE | 2018-05-01 13:17 | NUR ---
PT LEFT VIA WHEELCHAIR. WITH PT. PAPERWORK SIGNED AND EYEDROPS SENT WITH PT. NO QUESTIONS ASKED.
== END 2018-05-01 13:19 | disposition home health service (06) | DRG 57 ==
LOC: D.REHAB 17:03
PROVIDERS: ADMIT Emergency Medicine
DX: I69.30 Unspecified sequelae of cerebral infarction (principal); I10 Essential (primary) hypertension; I25.10 Atherosclerotic heart disease of native coronary artery without angina pectoris; E11.9 Type 2 diabetes mellitus without complications; Z95.1 Presence of aortocoronary bypass graft

== ENCOUNTER 2018-05-09 17:31 | Emergency (ER) | payer MEDICARE, BC ==
[~2018-05-09] VITALS: Ht 180.3 cm; Wt 60.0 kg
[~2018-05-09 17:31] MED LIST changes: +ASPIRIN325 MG PO
[2018-05-09 17:57] VITALS: Ht 180.3 cm; Wt 60.0 kg
[2018-05-09 18:37] LABS: BASOPHILS 0.4 % (0-2); EOSINOPHILS 1.1 % (0-7); HEMATOCRIT 40.9 % (42.0-54.0); HEMOGLOBIN 13.4 g/dL (13.5-17.5); IMMATURE GRANULOCYTES 0.1 % (0-5); LYMPHOCYTES 20.4 % (15-50); MCH 31.3 pg (26.0-34.0); MCHC 32.8 g/dL (31.0-37.0); MCV 95.6 fL (80.0-100.0); MEAN PLATELET VOLUME 10.5 fL (7.4-10.4); MONOCYTES 6.5 % (2-11); NEUTROPHILS 71.5 % (40-80); PLATELET COUNT 265 10x3/uL (130-400); RBC 4.28 10x6/uL (4.20-6.10); RDW 13.5 % (11.5-14.5); WBC 7.3 10x3/uL (4.8-10.8)
[2018-05-09 18:56] LABS: ALBUMIN 3.6 g/dL (3.4-5.0); ANION GAP 14.4 mmol/L (8-16); BILIRUBIN - TOTAL 0.42 mg/dL (0.2-1.3); CALCIUM 9.5 mg/dL (8.5-10.1); CARBON DIOXIDE 25.1 mmol/L (21.0-32.0); CREATININE - SERUM 1.4 mg/dL (0.6-1.3); POTASSIUM - SERUM 4.5 mmol/L (3.5-5.1); PROTEIN - SERUM 7.5 g/dL (6.4-8.2)
[2018-05-09 20:58] VITALS: BP 105/67
== END 2018-05-09 20:59 | disposition home or self-care (01) ==
LOC: D.ER 17:31
PROVIDERS: Family Medicine
DX: S21.119A Laceration without foreign body of unspecified front wall of thorax without penetration into thoracic cavity, initial encounter (principal); W18.30XA Fall on same level, unspecified, initial encounter; Y93.89 Activity, other specified; Y92.014 Private driveway to single-family (private) house as the place of occurrence of the external cause; S00.31XA Abrasion of nose, initial encounter; E11.9 Type 2 diabetes mellitus without complications; Z86.73 Personal history of transient ischemic attack (TIA), and cerebral infarction without residual deficits; I10 Essential (primary) hypertension; Z95.1 Presence of aortocoronary bypass graft

== ENCOUNTER 2018-05-20 15:09 | Emergency (ER) | payer MEDICARE, BC ==
[~2018-05-20] VITALS: Ht 180.3 cm; Wt 61.8 kg
[2018-05-20 15:33] VITALS: Ht 180.3 cm; Wt 61.8 kg
[2018-05-20 15:54] LABS: BASOPHILS 0.3 % (0-2); EOSINOPHILS 1.9 % (0-7); HEMATOCRIT 42.3 % (42.0-54.0); IMMATURE GRANULOCYTES 0.1 % (0-5); LYMPHOCYTES 19.6 % (15-50); MCH 31.7 pg (26.0-34.0); MCHC 33.1 g/dL (31.0-37.0); MCV 95.7 fL (80.0-100.0); MEAN PLATELET VOLUME 10.2 fL (7.4-10.4); MONOCYTES 10.5 % (2-11); NEUTROPHILS 67.6 % (40-80); PLATELET COUNT 214 10x3/uL (130-400); RBC 4.42 10x6/uL (4.20-6.10); WBC 7.2 10x3/uL (4.8-10.8)
[2018-05-20 16:15] LABS: ALBUMIN 3.6 g/dL (3.4-5.0); ANION GAP 15.4 mmol/L (8-16); BILIRUBIN - TOTAL 0.34 mg/dL (0.2-1.3); CALCIUM 9.2 mg/dL (8.5-10.1); CREATININE - SERUM 1.4 mg/dL (0.6-1.3); POTASSIUM - SERUM 4.4 mmol/L (3.5-5.1); PROTEIN - SERUM 7.5 g/dL (6.4-8.2)
[2018-05-20 18:23] LABS: APPEARANCE CLEAR (CLEAR); COLOR YELLOW (YELLOW); NITRITE NEGATIVE (NEGATIVE); PROTEIN NEGATIVE (NEGATIVE); SPECIFIC GRAVITY 1.015 (1.005-1.020)
[2018-05-20 18:24] LABS: BILIRUBIN NEGATIVE (NEGATIVE); GLUCOSE 500 mg/dL (NEGATIVE); KETONE NEGATIVE (NEGATIVE); UROBILINOGEN NORMAL (NORMAL)
[2018-05-20 23:00] VITALS: BP 125/79
== END 2018-05-20 23:00 | disposition short-term general hospital (02) ==
LOC: D.ER 15:09
PROVIDERS: Family Medicine
DX: I63.9 Cerebral infarction, unspecified (principal); R26.9 Unspecified abnormalities of gait and mobility; Z95.1 Presence of aortocoronary bypass graft; I10 Essential (primary) hypertension